=== PATIENT | female | born 1955 | race Caucasian/White ===

== ENCOUNTER → 2017-12-08 | Outpatient (CLI) | payer OTHER ==
[~2017-12-08] MED LIST: AMT25 PO; B-COCAP2 PO; BUPRTAB51 PO; COLE625T PO; CRS10 PO; FLX10 PO; HYDC25 PO; LOVAZA PO; METO50TA7 PO; OSTEOBIFLEX PO; OXYC-57 PO; PRLSR20 PO; SENN-61 PO; TRAM-10 PO; [UNRECOGNIZED DRUG - OTHER] PO
--- NOTE | 2017-12-09 06:36 | PAP/PSG TECHNICIAN REPORT ---
[facility] Manager Basketball Polysomnogram Report Study name: None Report date: 12/09/2017 Study date: 12/08/2017 Referring Physician: Dr. Ravindra Melendez DO Name: NAKITA CARLEEN M Interpreting Physician: Ravindra Melendez D.O. Date of : 1955 Manager Basketball: Ramon Pritchett RPSGT. Sex: Female Age: 62 StudyType: PSG PAP Weight: 160 lbs Height: 62 years, Height 5' 0" BMI: 31.24 Medications: AMITRIPTYLINE HCL 25 MG, BYSTOLIC 10 MG, GABAPENTIN 100 MG, HYDROCHLOROTHIZIDE 25 MG, LOSARTAN POTASSIUM 25 MG, MELOXICAM, POTASSIUM CHLORIDE 20 MEQ, PRILOSEC OTC 20 MG, VALTREX 500 MG Patient History PATIENT HAD A SLEEP STUDY DONE IN SEPTEMBER OF 2017. SHE WAS POSITIVE FOR ESTELLA WITH AN AHI OF 27.7/HR. SHE IS HERE TODAY FOR A CPAP TITRATION. RM 6 Parameters Monitored NPSG: E1-M2, E2-M1, Fp1-M2, Fp2-M1, F3-M2, F4-M2, F4-M1, C3-M2, C4-M2, C4-M1, O1-M2, O2-M2, O2-M1, T3-M2, T4-M1, P3-M2, P4-M1, CHIN1, CHIN2, HR, EKG, Legs, PFLOW, SNOR, FLOW, CFLOW, Tidal Volume, THOR, ABDO, SpO2, PLTH, CPRESS, ETCO2 Wave, ETCO2, pH Sleep Architecture Sleep Stages Time at Lights Off 10:21:47 PM STAGES Time (min.) TST (%) Time at Lights On 5:27:17 AM Wake 52.0 -- Total Recording Time (TRT) 426.00 min. N1 9.0 2 Total Sleep Period (TSP) 400.0 min. N2 295.0 79 Total Sleep Time (TST) 373.5min. N3 21.0 6 Awake Time 52.0 min. REM 48.5 13 Wake after Sleep Onset 26.5 min. Sleep Efficiency (SE) 88 % Sleep Onset Latency (BRITTNEY) 25.5 min. Number of Stage 1 Shifts None Awakenings 6 Stage Changes 31 Number of REM periods 3 REM 48.5 13 REM Latency 148.5 min. NREM 325.0 87 Body Position Analysis Supine Right Left Side Prone Vertical Total Sleep Time (min.) 425.5 0.0 0.0 0.00 0.0 0.0 Total Sleep Time (%) 100% 0% 0% 0 0% N/A% Total Sleep Time REM (min.) 48.5 0.0 0.0 None 0.0 0.0 Total Sleep Time NREM (min.) 325.0 0.0 0.0 None 0.0 0.0 Intermittent Wake (min.) 52.0 0.0 0.0 None 0.0 0.0 Total Sleep Period (%) 100% None None None None None Arousals Myoclonus (PLM) * Events Count Index Events Count Index Spontaneous 8 1 Events Awake (PLMW) 56 64.6 Respiratory 1 0.3 Events Asleep w/ Arousal (PLMA) 3 0.5 PLM 3 0 Events Asleep w/o Arousal (PLMS) 54 8.7 Snoring 3 0 Total Asleep 57 9.2 Total 15 2 Total 113 16 Respiratory Analysis * CA OA MA CH H RERA Total Count 0 1 0 0 26 0 27 Index 0.0 0.2 0.0 0 4.2 0 4.3 Mean Duration 0.0 15.0 0.0 0.00 22.4 0.0 22.1 Longest Duration 0.0 15.0 0.0 0.00 0.0 0.0 40.9 Respiratory Event Summary Total Supine ~Supine Right Left Prone REM NREM Apneas Count 1 1 N/A N/A N/A N/A 0 1 Index 0.2 0 N/A N/A N/A N/A 0 0 Hypopneas (4% Desat) Count 26 26 N/A N/A N/A N/A 3 23 Index 4.2 4.2 N/A N/A N/A N/A 3.7 4.2 Apneas & All Hypopneas Count 27 27 N/A N/A N/A N/A 3 24 Index 4.3 4 N/A N/A N/A N/A 3.7 4.4 Respiratory Events (Rug Cleaner Hand+All Hyp+RERA) Count 27 27 N/A N/A N/A N/A 3 24 Index 4.3 4 N/A N/A N/A N/A 3.7 4.4 Respiratory Related Arousal Count 1 27 N/A N/A N/A N/A 0 2 Index 0.3 0 N/A N/A N/A N/A 0 0 Snoring Analysis Supine Right Left Prone REM NREM Total Snore duration 4.7 min Snores count 194 N/A N/A N/A 1 193 194 Snore mean duration 1.5 Sec Snores index 31 N/A N/A N/A 1.2 35.6 31.2 TST with snoring (%) 1.3% Desaturation Event Summary: Minimum %SpO2 Event Count Mean/Min/Max Duration(sec.) Desaturation Index % Time In Bed > 90 23 47.6 / 9.0 / 84.6 5.8 56.4 86 - 90 10 40.6 / 17.0 / 68.2 3.3 43.2 81 - 85 0 N/A 0.0 0.3 76 - 80 0 N/A 0.0 0.0 71 - 75 0 N/A 0.0 0.0 66 - 70 0 N/A 0.0 0.0 61 - 65 0 N/A 0.0 0.0 56 - 60 0 N/A 0.0 0.0 51 - 55 0 N/A 0.0 0.0 < 50 0 N/A 0.0 0.0 Total REM NREM Awake <50% 0.0 min. 0.0 min. 0.0 min. 0.0 min. 51 - 60% 0.0 min. 0.0 min. 0.0 min. 0.0 min. 61 - 70% 0.0 min. 0.0 min. 0.0 min. 0.0 min. 71 - 80% 0.0 min. 0.0 min. 0.0 min. 0.0 min. 81 - 90% 182.1 min. 19.6 min. 151.6 min. 11.0 min. 91 - 100% 235.9 min. 28.9 min. 173.4 min. 33.6 min. Average 91 91 91 91 Minimum SpO2 82 87 82 87 Desaturation Event Index 4.2 3.7 5.0 1.2 # Desat. Events below 89% 27 3 24 0 Time(%) with Saturation below 89% 2.6 0.3 2.3 0.1 Time(min.) with Saturation below 89% 11.0 1.1 9.6 0.3 Time (mins) REM (mins) NREM (mins) % of TST SpO2 Below 90% 29 3 N26 12.5 SpO2 Below 88% 19 0 0 2 Heart Rate Analysis Min (bpm) Max (bpm) Average (bpm) Awake 57 79 66 NREM 54 80 65 REM 57 79 66 Overall 54 80 65 Supplemental O2 Values Minimum O2 level: None Value Start Time End Time Manager Basketball Comments Mrs. Smith slept in the supine positions. No cardiac arrhythmia noted. Leg movements noted. No bruxism noted. CPAP was initiated at +4 CMH2O and up-titrated to an optimal level of +9 CMH2O, which nearly eliminated all respiratory events and snoring. A Resmed AirFit F20 full face size small mask was used during titration Mrs. Smith awoke to use the restroom 1 time during the night. Mrs. Smith stated I slept as well as I do when I am in my own bed. The final report will be interpreted and signed by a sleep physician. The completed physician report will then be placed in the patient medical record. Therapy Event: Therapy (cm H20) 4 5 6 8 9 Total Time at Pressure (min.) 80.1 98.9 72.9 16.4 157.1 TST at Pressure (min.) 54.1 98.9 48.4 16.4 155.6 # Periods 1 1 1 1 1 Sleep Onset (min.) 25.5 0.0 0.0 0.0 0.0 REM Onset (min.) N/A 93.9 0.0 N/A 61.1 Sleep Efficiency % 67 100 66 100 99 Wakefulness (%) 32.4 0.0 33.6 0.0 1.0 Wakefulness (min.) 26.0 0.0 24.5 0.0 1.5 NREM 1 (%) 2.5 0.0 6.2 0.0 1.6 NREM 1 (min.) 2.0 0.0 4.5 0.0 2.5 NREM 2 (%) 38.9 94.9 35.6 100.0 81.2 NREM 2 (min.) 31.1 93.9 26.0 16.4 127.6 NREM 3 (%) 26.2 0.0 0.0 0.0 0.0 NREM 3 (min.) 21.0 0.0 0.0 0.0 0.0 REM (%) 0.0 5.1 24.6 0.0 16.2 REM (min.) 0.0 5.0 18.0 0.0 25.5 # Arousals 5 3 3 0 4 Arousal Index 5.5 1.8 3.7 0.0 1.5 # Snore 58 7 60 51 18 Snore Index 64.3 4.2 74.3 186.2 6.9 AHI 11.1 1.8 9.9 14.6 0.8 AHI Supine 11.1 1.8 9.9 14.6 0.8 AHI Non-Supine N/A N/A N/A N/A N/A NREM AHI 11.1 0.6 13.8 14.6 0.9 REM AHI N/A 23.9 3.3 N/A 0.0 RDI 11.1 1.8 9.9 14.6 0.8 # Obstructive 0 0 1 0 0 # Central Ap 0 0 0 0 0 # Mixed 0 0 0 0 0 # Hypopneas 10 3 7 4 2 RERAS 0 0 0 0 0 Total Respiratory Events 10 3 8 4 2 Time Below SpO2 89.00% (min.) 2.8 2.9 1.6 1.3 2.0 Mean NREM SpO2 (%) 91 91 91 91 90 Mean REM SpO2 (%) N/A 91 91 N/A 90 Mean Sleep SpO2 (%) 91 91 91 91 90 Min NREM SpO2 (%) 84 82 87 84 85 Min REM SpO2 (%) N/A 87 87 N/A 88 Position Supine (min.) 54.1 98.9 48.4 16.4 155.6 Position Non-supine (min.) 0.0 0.0 0.0 0.0 0.0 LM Index Sleep 17.7 3.6 13.6 0.0 9.3 LM Index NREM 17.7 3.2 5.9 0.0 10.1 LM Index REM N/A 11.9 26.7 N/A 4.7 Mean Heart Rate (bpm) 67 67 67 63 62 Min Heart Rate (bpm) 59 58 60 58 54
--- NOTE | 2017-12-13 10:43 | Sleep Study ---
Sleep Study Report Date of Service: 12/08/2017 Sleep Study Report CLINICAL DATA: The patient is a 62-year-old female who was diagnosed with moderate sleep apnea years ago. She did not tolerate nasal CPAP. She does have excessive daytime somnolence and morning headaches. There is a history of hypertension. A diagnostic sleep study was done 10/16/2017. This revealed moderate sleep apnea with an apnea-hypopnea index of 27.7. [facility]. SLEEP ARCHITECTURE: The total sleep period was 400 minutes. The total sleep time was 373.5 minutes. The sleep efficiency was near normal at 88 percent. The sleep latency was mildly prolonged at 25.5 minutes. Wake after sleep onset was 26.5 minutes. The REM latency was prolonged to 148.5 minutes. Sleep consisted of stage N1 2 percent, stage N2 79 percent, stage N3 6 percent, stage REM 13 percent. AROUSAL DATA: Patient had a total of 15 arousals including 8 spontaneous arousals, 1 respiratory arousal, 3 PLM arousals, and 3 snoring arousals. The arousal index was normal at 2. PLM DATA: The patient had a total of 57 periodic limb movements of sleep for a PLM index of 9.2. There were 3 arousals associated with limb movements for a PLM arousal index of 0.5. EKG: The underlying cardiac rhythm was normal sinus. The cardiac rates 54-80 beats per minute. The average heart rate was 65 beats per minute. RESPIRATORY DATA: The patient was treated with nasal CPAP. She had a total of 27 respiratory events including 1 obstructive apnea and 26 hypopneas. Hypopneas were scored according to the 4 percent desaturation rule. The apnea was 15 seconds. The mean duration of the hypopneas was 22.4 seconds. The apnea-hypopnea index was 4.3 events per hour. At the final pressure of 9 centimeters the apnea-hypopnea index was only 0.8. She did spend 157 minutes at the final pressure. OXIMETRY DATA: The average saturation for the night was 91 percent. The minimum saturation was 82 percent. There was a total of 11 minutes with saturations less than 89 percent. RESIDENTIAL COLLECTIONS COMMENTS: The patient slept in the supine position. No cardiac arrhythmia noted. Leg movements noted. No bruxism noted. CPAP was initiated at 4 centimeters and up titrated to an optimal level of 9 centimeters which nearly eliminated all respiratory events and snoring. A ResMed med air fit F 20 full face mask size small was used during titration. The patient awakened to use the restroom 1 time during the night. IMPRESSIONS: 1. Obstructive sleep apnea-resolved with nasal CPAP at 9 centimeters COMMENTS: The patient did very well with nasal CPAP. Her sleep efficiency was near normal. She had very few arousals. Her sleep was well consolidated. She had no significant apnea at the final pressure of 9 centimeters. RECOMMENDATIONS: 1. It is advised that the patient be started on nasal CPAP at 9 centimeters. 2. It is suggested that she be ordered a ResMed med air fit F 20 full face mask size small. 3. Weight loss is advised in light of the elevation of body mass index at 31.24. 4. If possible the patient should avoid sleeping in the supine position. Typically there is more respiratory events and snoring while supine. Copies To 1: Ravindra Melendez DO; Vivien Berrios M.D.
== END | disposition home or self-care (01) ==
LOC: C.NEUR 20:00
PROVIDERS: ATTEND Internal Medicine Pulmonary Disease
DX: G47.33 Obstructive sleep apnea (adult) (pediatric) (principal)

== ENCOUNTER → 2018-01-20 | Outpatient (CLI) | payer OTHER ==
[~2018-01-20] MED LIST changes: -METO50TA7 PO; +METO50TA8 PO
--- NOTE | 2018-01-20 15:50 | DIAGNOSTIC IMAGING REPORT ---
MRI OF THE RIGHT SHOULDER CLINICAL HISTORY: Right shoulder pain. Limited range of motion. COMPARISON STUDY: Radiographs of the right shoulder dated 12/16/2017. TECHNIQUE: MRI of the right shoulder was performed utilizing various T1 and T2 weighted sequences in the axial, sagittal, coronal planes. IV contrast was not administered for this examination. The examination is compromised by motion artifact. FINDINGS: Rotator cuff: There is tendinopathy with extensive high-grade partial-thickness tearing of the supraspinatus tendon. A small full-thickness tear is seen on sagittal image #9. There is no musculotendinous retraction. There is tendinopathy with mild partial thickness tearing of the infraspinatus tendon near the leading edge. No full-thickness tear is seen. The teres minor and subscapularis tendons are intact. There is no subacromial or subdeltoid bursal fluid. Mild productive changes seen at the acromioclavicular joint. Biceps tendon: The proximal biceps tendon is not visualized at the anchor and may be completely torn with previous surgical repair. More distally, the biceps tendon appears stenotic but intact and is located in the bicipital groove. Labrum: There is degenerative tearing/maceration of the glenoid labrum. Shoulder joint: There is a small joint effusion. There is complete loss of the articular cartilage of the glenoid. Normal advanced arthritic change is seen in the humeral head. There is flattening of the humeral head with extensive marrow edema and large foci of subchondral cyst formation. Advanced arthritic changes also seen in the glenoid with foci of subchondral cyst formation and marrow edema. No fracture is seen. Large spurs arise along the inferomedial aspect of the humeral head. Screw tracts are noted in the humeral head and glenoid. Musculature and soft tissues: The musculature of the shoulder is normal in bulk and signal intensity. No atrophy is seen. IMPRESSION: 1. Advanced arthritic change is seen at the shoulder joint as above, with marked deformity and marrow edema in the humeral head as well as marrow edema involving the glenoid. 2. The proximal long head of the biceps tendon is not visualized at the anchor. The more distal portions of the biceps tendon are demonstrate tendinopathy but are intact. Correlate for a history of previous tear/ surgical repair. 3. There is tendinopathy with extensive partial thickness tearing of the supraspinatous tendon. A small full-thickness tear is seen. No musculotendinous retraction is identified. 4. There is mild tendinopathy of the infraspinatus tendon with partial thickness tearing seen at the leading edge. 5. There is extensive tearing/maceration of the glenoid labrum. Electronically signed by: Nikhil Huynh M.D. 01/20/2018 3:49 PM Dictated Date/Time: 01/20/2018 3:42 PM
== END | disposition home or self-care (01) ==
LOC: C.MRIBC 15:00
PROVIDERS: ATTEND Orthopaedic Surgery
DX: M19.011 Primary osteoarthritis, right shoulder (principal); R60.0 Localized edema; M67.813 Other specified disorders of tendon, right shoulder; M75.101 Unspecified rotator cuff tear or rupture of right shoulder, not specified as traumatic; S46.011A Strain of muscle(s) and tendon(s) of the rotator cuff of right shoulder, initial encounter; S43.431A Superior glenoid labrum lesion of right shoulder, initial encounter; X58.XXXA Exposure to other specified factors, initial encounter

== ENCOUNTER 2021-04-27 07:34 | Inpatient (IN) ==
--- NOTE | 2021-03-23 15:49 | PAT Medication Instructions ---
Medication Instructions Date of Service March 23, 2021 Home Medications losartan 25 mg tablet 25 mg PO QAM metformin 500 mg tablet 1,000 mg PO QAM multivitamin 1 tab PO QAM valacyclovir 500 mg tablet 500 mg PO DAILY cetirizine 10 mg capsule 10 mg PO DAILY PRN magnesium oxide 500 mg capsule 500 mg PO QAM metoprolol succinate 25 mg capsule sprinkle, ext. release 24 hr 25 mg PO QAM naproxen sodium 220 mg capsule 220 mg PO Q12H turmeric root extract 500 mg capsule 500 mg PO QAM acetaminophen [Acetaminophen Extra Strength] 500 mg PO BID amitriptyline 50 mg PO HS calcium 600 mg PO BID cholecalciferol (vitamin D3) [Vitamin D3] 250 mcg PO QAM folic acid 0.8 mg PO QAM glucosamine-chondroitin [Osteo Bi-Flex] 2 tab PO QAM omeprazole magnesium [Prilosec OTC] 20 mg PO QAM potassium chloride 20 meq PO TID vitamin B complex 1 tab PO QAM ASK your surgeon for instructions naproxen sodium 220 mg capsule 220 mg PO Q12H STOP taking 2 weeks before surgery turmeric root extract 500 mg capsule 500 mg PO QAM glucosamine-chondroitin [Osteo Bi-Flex] 2 tab PO QAM DO NOT take the morning of surgery losartan 25 mg tablet 25 mg PO QAM metformin 500 mg tablet 1,000 mg PO QAM multivitamin 1 tab PO QAM cetirizine 10 mg capsule 10 mg PO DAILY PRN magnesium oxide 500 mg capsule 500 mg PO QAM calcium 600 mg PO BID cholecalciferol (vitamin D3) [Vitamin D3] 250 mcg PO QAM folic acid 0.8 mg PO QAM potassium chloride 20 meq PO TID vitamin B complex 1 tab PO QAM Take morning of surgery With a small sip of water, OTHERWISE NOTHING TO EAT OR DRINK AFTER MIDNIGHT: valacyclovir 500 mg tablet 500 mg PO DAILY metoprolol succinate 25 mg capsule sprinkle, ext. release 24 hr 25 mg PO QAM acetaminophen [Acetaminophen Extra Strength] 500 mg PO BID (okay to take up to 4 hours prior to surgery if needed) omeprazole magnesium [Prilosec OTC] 20 mg PO QAM Take evening before surgery acetaminophen [Acetaminophen Extra Strength] 500 mg PO BID amitriptyline 50 mg PO HS calcium 600 mg PO BID potassium chloride 20 meq PO TID Other Notes If you have any questions please call us at [phone] or [phone] or or [phone]
--- NOTE | 2021-03-28 11:59 | Anesthesiology Consultation ---
Date of Service March 28, 2021 Assessment & Plan (1) Encounter for pre-operative examination: Chart Review Chart Review: Acceptable Risk for Surgery (pending preop Covid testing results ) and Patient seen in Pre Admission Testing - Check BSG AM DOS Left UE restriction Per nursing assessment 03/19/21, patient denies any recent travel. No known Covid positive contacts or Covid related symptoms. No known Covid infection in the past 90 days. Preop Covid testing 04/25/21= will await results. Educated on importance of self quarantining, social distancing and wearing mask in public both for the patient and household contacts. Last seen by cardiology 01/31/2021 = seen for follow-up on nonischemic cardiomyopathy secondary to chemotherapy. Cardio aware of upcoming shoulder surgery. "From a cardiac standpoint she is doing very well and no further cardiac testing or intervention is necessary at this time. She is on a very good medical regimen and no changes will be made today. I have encouraged to remain active and I will plan on seeing her back here in 6 months. In terms of her preop risk assessment she was counseled that I would place her as a moderate risk for any adverse perioperative cardiovascular event with her risk being approximately less than 5%. She was further counseled that no further cardiac testing intervention would further lower her risk. She states that she understands, she is accepting of that risk and wishes to proceed with surgeries. I have counseled her to continue her metoprolol uninterrupted throughout any periprocedural time. To help further lower her cardiac risk." Teaching & Discussion Pre-Anesthesia Teaching/Discussion Notes: Instructed NPO after midnight before surgery,except medications with 15 cc of water. Medication instructions provided according to the PAT guidelines. History Surgery Operation Date: 04/27/21 08:45 Proposed Procedures p Left Total Shoulder Arthroplasty Reverse - Nate Chapman, Height/Weight Height: 4 ft 10 in Weight: 64.5 kg Allergies Allergy/AdvReac Type Severity Reaction Status Date / Time niacin Allergy Severe ITCHING Verified 03/19/21 11:43 AND FLUSH FEELING atorvastatin [From Lipitor] Allergy Intermediate muscle Verified 03/19/21 11:43 pains ezetimibe [From Vytorin] Allergy Intermediate muscle Verified 03/19/21 11:43 pains lisinopril Allergy Intermediate Cough Verified 03/19/21 11:43 rosuvastatin [From Crestor] Allergy Intermediate Muscle Pain Verified 03/19/21 11:43 simvastatin [From Vytorin] Allergy Intermediate Muscle Pain Verified 03/19/21 11:43 codeine AdvReac Intermediate Nausea Verified 03/19/21 11:43 prochlorperazine AdvReac Unknown EXTRAPYRAMIDAL Verified 03/19/21 11:43 SIDE EFFECTS/MOUTH TWITCHING Medications Home Medications Medication Instructions Recorded Confirmed Last Taken losartan 25 mg tablet 25 mg PO QAM 03/23/19 03/19/21 Unknown metformin 500 mg tablet 1,000 mg PO QAM 03/23/19 03/19/21 Unknown multivitamin 1 tab PO QAM 03/23/19 03/19/21 Unknown valacyclovir 500 mg tablet 500 mg PO DAILY tab 12/29/19 03/19/21 Unknown cetirizine 10 mg capsule 10 mg PO DAILY PRN 12/13/20 03/19/21 Unknown magnesium oxide 500 mg capsule 500 mg PO QAM 12/13/20 03/19/21 Unknown metoprolol succinate 25 mg capsule 25 mg PO QA ea 12/13/20 03/19/21 Unknown sprinkle, ext. release 24 hr naproxen sodium 220 mg capsule 220 mg PO Q12H 12/13/20 03/19/21 Unknown turmeric root extract 500 mg 500 mg PO QA cap 12/13/20 03/19/21 Unknown capsule acetaminophen [Acetaminophen Extra 500 mg PO BID 03/19/21 03/19/21 Unknown Strength] amitriptyline 50 mg PO HS 03/19/21 03/19/21 Unknown calcium 600 mg PO BID 03/19/21 03/19/21 Unknown cholecalciferol (vitamin D3) 250 mcg PO QAM 03/19/21 03/19/21 Unknown [Vitamin D3] folic acid 0.8 mg PO QAM 03/19/21 03/19/21 Unknown glucosamine-chondroitin [Osteo 2 tab PO QA 03/19/21 03/19/21 Unknown Bi-Flex] omeprazole magnesium [Prilosec OTC] 20 mg PO QAM 03/19/21 03/19/21 Unknown potassium chloride 20 meq PO TID 03/19/21 03/19/21 Unknown vitamin B complex 1 tab PO QAM 03/19/21 03/19/21 Unknown Past Medical History Medical History (Updated 03/29/21 @ 14:42 by Mely Dawn PA-C) Degenerative disc disease Diabetes mellitus, type 2 Well controlled and stable A1C 6.1 on 03/28/21 Fibromyalgia Currently has flare GERD (gastroesophageal reflux disease) Well controlled and stable History of anemia Stable blood count since menopause History of kidney stones Not current issues History of TMJ disorder Improved with dental implants Hx of basal cell carcinoma Squamous and basal cell carcinoma - s/p removal Prone to keloids Hx of breast cancer LEFT- 2019 S/p left breast lumpectomy with LN dissection and chemo/XRT Hypercholesterolemia Hypertension Irregular heart beat Left bundle branch block CHRONIC- FOLLOWS WITH DR. RUBIN Lymphedema of left arm HX OF- IMPROVED WITH PT Nonischemic cardiomyopathy Mild- EF as low as 45-50% s/p chemo- since resolved ESTELLA (obstructive sleep apnea) NO DEVICE USING CURRENLTY (NEEDS SUPPLIES) HAS LOST WEIGHT - FEELS SYMPTOMS IMPROVED- HAS NOT HAD REPEAT SLEEP STUDY Exercise / Class Metabolic Activity III < 4 Walking/Shop/Light housework (ONE FLIGHT OF STAIRS- MILD SOB- NO CHEST PAIN ) Past Family History Family History Mother , age 59 Emphysema lung Father , age 56 Myocardial infarction Family history of diabetes mellitus Sister Vaginal bleeding Brother No problems noted. Son No problems noted. Son No problems noted. Grandmother (Maternal) Colon cancer Family history of diabetes mellitus Grandfather (Paternal) Colon cancer Prostate cancer Other No family history of adverse response to anesthesia Past Surgical History Surgical History H/O abdominoplasty H/O ankle fusion LEFT H/O cervical spine surgery X 3 (HARDWARE) "LIMITED ROM" BOTH WITH SIDE TO SIDE AND FLEXION AND EXTENSTION FUSED C3-T3 H/O section X 2 H/O tubal ligation History of ankle surgery LEFT>surgery -2018 , bone marrow transplant (FAILED) History of cataract surgery RT/LEFT History of colonoscopy History of esophagogastroduodenoscopy (EGD) History of laparoscopy History of lumbar fusion History of repair of rotator cuff RT X 2 History of tooth extraction WITH DENTAL IMPLANTS Hx of squamous cell carcinoma excision S/P bilateral breast reduction surgery 2002 S/P lumpectomy, left breast WITH CHEMO AND RADIATION Past Anesthesia History No Hx of Anesthesia Complications and No Family Hx of Anesthesia Complications History of PONV History of PONV (RELIEVED WITH IV ANTI NAUSEA MEDS ) and Hx of Motion Sickness Social History Smoking Status: Former smoker tobacco type: cigarettes Smoking cigarettes per day: Quit 1980 Do You Dip or Chew Tobacco: No Smoking End Date: 1980 Hx Alcohol Use: Yes alcohol intake frequency: holidays/special occasions only Hx Substance Use: No substance use type: does not use Review of Systems Hx of blood transfusion- s/p surgery ( and back surgery) Chronic cough- feels secondary to allergies- stable Patient denies chest pain, shortness of breath at rest, wheezing, palpitations. No hx of seizures, stroke, MS. No hx of blood clots or blood transfusions Physical Exam Vital Signs VITALS BP 172/98 (per patient- BP elevated recently- pt will monitor at home- if still elevated- she will follow up with cardio) P 82 TEMP 98.3 SP02 97% RESP 16 Constitutional no acute distress ENMT Mouth: no TMJ clicking Thyromental Distance: > or= 3.5 Finger Breadths (3.5) Mallampati Class: I Front teeth on top and bottom are either capped or permanent implants Neck + limited neck extension (significant ) Respiratory normal respiratory effort; no respiratory distress Auscultation: lungs clear to auscultation bilaterally; no wheezes Cardiovascular Rate/Rhythm: regular rate and regular rhythm Heart Sounds: no murmur Vessels: no carotid bruit Musculoskeletal Spine: no pain with cervical ROM Extremities: extremities normal to inspection Psychiatric Orientation: alert Testing Laboratory Results 03/28/21 13:00 03/28/21 13:00 PT 10.3 Seconds (9.0-12.0) 03/28/21 13:00 INR 1.0 (0.9-1.1) 03/28/21 13:00 APTT 27.0 Seconds (21.0-31.0) 03/28/21 13:00 Hemoglobin A1c 6.1 % (4.5-5.6) H 03/28/21 13:00 Blood Type O Positive 03/28/21 13:00 Antibody Screen NEGATIVE 03/28/21 13:00 Electrocardiogram Date: 03/28/21 Findings: + NSR @ (75 bpm) Left bundle branch block When compared to EKG from March 26, 2011no significant changes found per cardio. Chest X-Ray Date: 03/28/21 Findings: + NAD The heart is the upper limits of normal in size. There is aortic tortuosity/ectasia. There is no failure. There is no focal pulmonary consolidation. There are no pleural effusions. There are postsurgical changes within the cervical spine. There is evidence of a posterior cervicothoracic spinal fusion Echocardiogram Date: 06/03/19 EF: 52% LV Function: normal Other Findings: + LVH (Mild/concentric) and + diastolic dysfunction (Grade 1) Septal wall motion is abnormal consistent with left bundle branch block. Regional left ventricular wall motion is otherwise normal. Mild to moderate aortic valve sclerosis without stenosis. Mild TR. Stress Test Date: 05/15/20 Type: nuclear Myocardial perfusion imaging is normal. Overall left ventricular systolic function was normal without regional wall motion abnormalities. LVEF 63%. Baseline EKG shows sinus rhythm with left bundle branch block. Stress EKG was nondiagnostic due to LBBB.
--- NOTE | 2021-03-28 13:39 | XRay Report ---
XR chest Pre-admission PA/Lat CLINICAL HISTORY: Preoperative chest COMPARISON STUDY: 03/26/2011 FINDINGS: The heart is the upper limits of normal in size. There is aortic tortuosity/ectasia. There is no failure. There is no focal pulmonary consolidation. There are no pleural effusions. There are p ostsurgical changes within the cervical spine. There is evidence of a posterior cervicothoracic spina l fusion.[ IMPRESSION: No active disease in the chest. ACT 112: Negative or not required by law. Electronically signed by: Eder Lew M.D. 03/28/2021 1:38 PM
[2021-03-28 13:51] LABS: Basophils # (auto) 0.04 K/uL (0-0.2); Basophils % (auto) 0.6 %; Eosinophils # (auto) 0.19 K/uL (0-0.5); Eosinophils % (auto) 2.7 %; Hematocrit (blood only) 36.4 % (37-47); Hemoglobin 11.9 g/dL (12.0-16.0); Immature Granulocytes # (auto) 0.01 K/uL (0.00-0.02); Immature Granulocytes % (auto) 0.1 %; Lymphocytes # (auto) 1.68 K/uL (1.2-3.4); Lymphocytes % (auto) 23.8 %; Mean Corpuscular Hemoglobin 28.6 pg (25-34); Mean Corpuscular Hgb Conc 32.7 g/dL (32-36); Mean Corpuscular Volume 87.5 fL (80-100); Mean Platelet Volume 9.6 fL (7.4-10.4); Monocytes # (auto) 0.69 K/uL (0.11-0.59); Monocytes % (auto) 9.8 %; Neutrophils # (auto) 4.46 K/uL (1.4-6.5); Platelet Count 305 K/uL (130-400); RDW Coefficient of Variation 14.8 % (11.5-14.5); RDW Standard Deviation 47.3 fL (36.4-46.3); Red Blood Count 4.16 M/uL (4.2-5.4); White Blood Count 7.07 K/uL (4.8-10.8)
[2021-03-28 14:03] LABS: Estimated Average Glucose 128 mg/dl; Hemoglobin A1C 6.1 % (4.5-5.6); Prothrombin Time 10.3 Seconds (9.0-12.0)
[2021-03-28 14:48] LABS: BUN Creatinine Ratio 19.3 (10-20); Calcium 9.1 mg/dl (8.5-10.1); Creatinine Clr Calc Pharmacy 54.3 ml/min; Est GFR (African American) 87.7 ml/min; Est GFR (Non-African American) 75.7 ml/min; Potassium 3.8 mmol/L (3.5-5.1)
--- NOTE | 2021-03-29 22:16 | Electrocardiogram Report ---
Test Reason : Blood Pressure : / mmHG Vent. Rate : 075 BPM Atrial Rate : 075 BPM P-R Int : 142 ms QRS Dur : 134 ms QT Int : 402 ms P-R-T Axes : 032 -16 100 degrees QTc Int : 448 ms Normal sinus rhythm Left bundle branch block Abnormal ECG When compared with ECG of 26-MAR-2011 10:06, No significant change was found Confirmed by Michael Stokes ([id number]) on 03/29/2021 10:16:31 PM Referred By: Nate Chapman Confirmed By:Michael Stokes
--- NOTE | 2021-04-26 15:53 | History & Physical Report ---
Date of Service April 26, 2021 Assessment & Plan (1) Osteoarthritis of right shoulder: We will proceed with a right reverse shoulder arthroplasty. Postoperatively she will be placed in a sling and kept overnight in the hospital for postoperative medical management. She plans to do physical therapy with Elizabeth Davey in the [facility] upon discharge. History of Present Illness Chief Complaint: Advanced osteoarthritis of the right shoulder. Primary Care Provider: Vivien Berrios MD Liza is a pleasant six 5-year-old female has been dealing with chronic increasing left shoulder pain. I did a right shoulder arthroscopy on her 4 years ago with rotator cuff repair. She a lot of arthritis at that time. Unfortunate she has gone on to develop worsening arthritis of the shoulder. After failing extensive conservative treatment, she has elected proceed with a right reverse shoulder arthroplasty.. Allergies Allergy/AdvReac Type Severity Reaction Status Date / Time niacin Allergy Severe ITCHING Verified 03/19/21 11:43 AND FLUSH FEELING atorvastatin [From Lipitor] Allergy Intermediate muscle Verified 03/19/21 11:43 pains ezetimibe [From Vytorin] Allergy Intermediate muscle Verified 03/19/21 11:43 pains lisinopril Allergy Intermediate Cough Verified 03/19/21 11:43 rosuvastatin [From Crestor] Allergy Intermediate Muscle Pain Verified 03/19/21 11:43 simvastatin [From Vytorin] Allergy Intermediate Muscle Pain Verified 03/19/21 11:43 codeine AdvReac Intermediate Nausea Verified 03/19/21 11:43 prochlorperazine AdvReac Unknown EXTRAPYRAMIDAL Verified 03/19/21 11:43 SIDE EFFECTS/MOUTH TWITCHING Home Medications Medication Instructions Recorded Confirmed Type losartan 25 mg tablet 25 mg PO QAM 03/23/19 03/19/21 History metformin 500 mg tablet 1,000 mg PO QAM 03/23/19 03/19/21 History multivitamin 1 tab PO QAM 03/23/19 03/19/21 History valacyclovir 500 mg tablet 500 mg PO DAILY tab 12/29/19 03/19/21 History cetirizine 10 mg capsule 10 mg PO DAILY PRN 12/13/20 03/19/21 History magnesium oxide 500 mg capsule 500 mg PO QAM 12/13/20 03/19/21 History metoprolol succinate 25 mg capsule 25 mg PO QAM ea 12/13/20 03/19/21 History sprinkle, ext. release 24 hr naproxen sodium 220 mg capsule 220 mg PO Q12H 12/13/20 03/19/21 History turmeric root extract 500 mg 500 mg PO QAM cap 12/13/20 03/19/21 History capsule acetaminophen [Acetaminophen Extra 500 mg PO BID 03/19/21 03/19/21 History Strength] amitriptyline 50 mg PO HS 03/19/21 03/19/21 History calcium 600 mg PO BID 03/19/21 03/19/21 History cholecalciferol (vitamin D3) 250 mcg PO QAM 03/19/21 03/19/21 History [Vitamin D3] folic acid 0.8 mg PO QAM 03/19/21 03/19/21 History glucosamine-chondroitin [Osteo 2 tab PO QAM 03/19/21 03/19/21 History Bi-Flex] omeprazole magnesium [Prilosec OTC] 20 mg PO QAM 03/19/21 03/19/21 History potassium chloride 20 meq PO TID 03/19/21 03/19/21 History vitamin B complex 1 tab PO QAM 03/19/21 03/19/21 History Past Med/Surg History Medical History Degenerative disc disease Diabetes mellitus, type 2 Well controlled and stable A1C 6.1 on 03/28/21 Fibromyalgia Currently has flare GERD (gastroesophageal reflux disease) Well controlled and stable History of anemia Stable blood count since menopause History of kidney stones Not current issues History of TMJ disorder Improved with dental implants Hx of basal cell carcinoma Squamous and basal cell carcinoma - s/p removal Prone to keloids Hx of breast cancer LEFT- 2019 S/p left breast lumpectomy with LN dissection and chemo/XRT Hypercholesterolemia Hypertension Irregular heart beat Left bundle branch block CHRONIC- FOLLOWS WITH DR. RUBIN Lymphedema of left arm HX OF- IMPROVED WITH PT Nonischemic cardiomyopathy Mild- EF as low as 45-50% s/p chemo- since resolved ESTELLA (obstructive sleep apnea) NO DEVICE USING CURRENLTY (NEEDS SUPPLIES) HAS LOST WEIGHT - FEELS SYMPTOMS IMPROVED- HAS NOT HAD REPEAT SLEEP STUDY Surgical History H/O abdominoplasty H/O ankle fusion LEFT H/O cervical spine surgery X 3 (HARDWARE) "LIMITED ROM" BOTH WITH SIDE TO SIDE AND FLEXION AND EXTENSTION FUSED C3-T3 H/O section X 2 H/O tubal ligation History of ankle surgery LEFT>surgery -2018 , bone marrow transplant (FAILED) History of cataract surgery RT/LEFT History of colonoscopy History of esophagogastroduodenoscopy (EGD) History of laparoscopy History of lumbar fusion History of repair of rotator cuff RT X 2 History of tooth extraction WITH DENTAL IMPLANTS Hx of squamous cell carcinoma excision S/P bilateral breast reduction surgery 2002 S/P lumpectomy, left breast WITH CHEMO AND RADIATION Family History Mother , age 59 Emphysema lung Father , age 56 Myocardial infarction Family history of diabetes mellitus Sister Vaginal bleeding Brother No problems noted. Son No problems noted. Son No problems noted. Grandmother (Maternal) Colon cancer Family history of diabetes mellitus Grandfather (Paternal) Colon cancer Prostate cancer Other No family history of adverse response to anesthesia Social History Smoking Status: Former smoker packs per day: 2; Years Smoked: 11; Cigarettes Per Day: Quit 1980; Second Hand Exposure: Yes; Hx Alcohol Use: Yes Hx Substance Use: No Preferred Language: Kittitian Communication Ability: Effective Visual Impairment: No Limitations Hearing Ability: Hard of Hearing Early Childhood Specialist Required: No Beliefs That Will Affect Care: None marital status: Current Living Situation: Spouse current occupational status: retired current occupation: semi retired RN - teaches at [employer] Feels Safe at Home: Yes Childhood Exposure to Second-Hand Smoke: Yes Assistive Devices: Glasses Review of Systems All systems reviewed & are unremarkable except as noted in HPI & below. Physical Exam On physical examination of the right shoulder, she has about 120 degrees forward elevation 120 degrees of abduction. She has 4 out of 5 motion with the full can test and external rotation. She does have crepitus with range of motion.. Constitutional WD/WN, vitals as above Eyes PERRL, conjunctivae normal, anicteric sclerae ENMT external ear and nose normal, oropharynx normal Neck trachea midline, no thyromegaly Respiratory normal respiratory effort Cardiovascular RRR, no murmur, no edema Gastrointestinal (Abdomen) normal bowel sounds, soft, nontender, no hepatosplenomegaly Psychiatric A+Ox3, euthymic affect Results & Data Results & Data Laboratory Results . Diagnostic Findings X-rays of the right shoulder do show advanced osteoarthritis with flattening of the humeral head and a large inferior osteophyte. There is joint space narrowing, osteophyte formation, and [id number] articulation. PG Care Time/CCT Total # of Minutes Spent Total Time Spent with Patient: Total time spent is greater than 50% in coordination of care (as documented) at patient's floor/unit and/or counseling patient: Coding Level of Care Code None Diagnoses Osteoarthritis of right shoulder M19.011
[~2021-04-27 07:34] MED LIST changes: +ACETAMINOPHEN 500 MG TAB PO SCH; -AMT25 PO; -B-COCAP2 PO; +BUPIVACAINE 0.5 % 5 MG/1 ML PF 10ML VIAL ONE; -BUPRTAB51 PO; -COLE625T PO; -CRS10 PO; +FAMOTIDINE 20 MG TAB PO SCH; -FLX10 PO; +GABAPENTIN 300 MG CAP PO SCH; -HYDC25 PO; -LOVAZA PO; +LR 15ML/HR IV SCH; +LR 60ML/HR IV SCH; -METO50TA8 PO; -OSTEOBIFLEX PO; -OXYC-57 PO; -PRLSR20 PO; -SENN-61 PO; -TRAM-10 PO; +TRANEXAMIC ACID 1,000 MG **IV Intra-op IV SCH; +TRANEXAMIC ACID 1,000 MG **IV Pre-op IV SCH; -[UNRECOGNIZED DRUG - OTHER] PO; +ceFAZolin 2000MG 2,000 MG/15 ML SYR IV SCH; +dexAMETHasone 4 MG TAB PO SCH
[2021-04-27] MEDS ORDERED: ONDANSETRON INJ 2 MG/ML 2 ML VIAL ONE (08:15)
[2021-04-27] MEDS ORDERED: LIDOCAINE 2% 2 ML VIAL/AMP(20MG/ML) INFIL ONE (08:15)
[2021-04-27] MEDS ORDERED: PROPOFOL IV EMULSION 10 MG/ML 20 ML VIAL IV ONE (08:15)
[2021-04-27] MEDS ORDERED: DEXAMETHASONE SOD INJ 4 MG/ML VIAL ONE (08:15)
[2021-04-27] MEDS ORDERED: ROCURONIUM BROMIDE 10 MG/ML 5 ML VIAL IV ONE (08:15)
[2021-04-27] MEDS ORDERED: MIDAZOLAM HCL 1 MG/ML 2ML VIAL ONE (08:16)
[2021-04-27] MEDS ORDERED: fentaNYL citrate 100 MCG/2 ML VIAL ONE (08:16)
--- NOTE | 2021-04-27 09:01 | History & Physical Bridge Note ---
Date of Service April 27, 2021 History & Physical Bridge Note I have examined the patient, reviewed the History & Physical and in the interval since the performance of the History & Physical I have noted the following changes of clinical significance: no changes noted
[2021-04-27] MEDS ORDERED: TRANEXAMIC ACID / 0.7% NACL 1000MG/100ML BAG IV ONE (09:15)
[2021-04-27] MEDS ORDERED: TRANEXAMIC ACID 100 MG/ML 10 ML VIAL IV SCH (09:15)
[2021-04-27] MEDS ORDERED: fentaNYL citrate 100 MCG/2 ML VIAL IV PRN (09:27)
[2021-04-27] MEDS ORDERED: ATROPINE SULFATE 0.1 MG/ML 10ML SYR IV PRN (09:27)
[2021-04-27] MEDS ORDERED: ONDANSETRON INJ 2 MG/ML 2 ML VIAL IV PRN ×2 (09:27→13:13)
[2021-04-27] MEDS ORDERED: KETOROLAC 30 MG/ML VIAL IV PRN (09:27)
[2021-04-27] MEDS ORDERED: LABETALOL HCL IV 5 MG/ML 20ML IV PRN (09:27)
[2021-04-27] MEDS ORDERED: ROPIVACAINE 0.5% HCL/PF 150 MG, BUPIVACAINE 0.75% MPF 20 ML, EPINEPHrine 30MG/30ML (OR ... INFIL SCH (10:00)
[2021-04-27] MEDS ORDERED: SUGAMMADEX SODIUM 200 MG/2 ML VIAL IV ONE (10:32)
[2021-04-27] MEDS ORDERED: KETOROLAC 30 MG/ML VIAL ONE (10:41)
[2021-04-27] MEDS ORDERED: ePHEDrine sulfate 50 MG/ML AMP ONE (10:53)
--- NOTE | 2021-04-27 11:29 | Operative Report ---
PG Post Operative Report Pre & Post Diagnosis Operation Date: 04/27/21 09:55 Pre-Op Diagnosis: Left Shoulder Osteoarthritis with tendinopathy of the long head of the biceps tendon Post-Op Diagnosis: Left Shoulder Osteoarthritis with tendinopathy of the long head of the biceps tendon I identified the patient and participated in the time-out.: Yes Procedure Operation Date: 04/27/21 09:55 Actual Procedures p Left Reverse Total Shoulder Arthroplasty (Left) with open biceps tenodesis as a distinct and separate procedure (modifier 59)- Nate Chapman DO Surgeon Nate Chapman, Transmitter Operator Nate Burroughs PAC Estimated Blood Loss 200 Findings Consistent with Post-Op Diagnosis Specimens Left humeral head Complications none Disposition Disposition: Recovery Room Indications Alvarado is a pleasant 65-year-old female presenting with chronic increasing left s houlder pain. X-rays and clinical examination were diagnostic for advanced osteoarthritis of her left shoulder. She has a history of rotator cuff tears of her right shoulder with repairs. After extensive discussions in the office, she elected proceed with a left reverse shoulder arthroplasty. Description of Procedure A CPT code modifier 59: The long head of the biceps tendon was enlarged and inflamed consistent with tendinopathy. A tenodesis was opted. This was a separate and distinct portion of the procedure. For these reasons, a CPT code modifier 59 will be added to this case. Implants used: I used a [employer]omet Comprehensive reverse total shoulder arthroplasty system with a size 9 press fit micro humeral stem, a +3 offset humeral tray and a standard humeral bearing, a 25 mm small augment baseplate with a 6.5 mm central screw and superior and inferior locking screws, and a size 40 mm eccentric glenosphere. Alvarado arrived at [facility] for the above procedure. She was seen in the preoperative holding area and the operative extremity was identified and signed. She was given a preoperative antibiotic, TXA, and an interscalene nerve block. She was taken back to the operating room, laid on table in supine position, and put under general anesthesia. She was then put into the alyse chchair position. The shoulder was then prepped and draped in sterile fashion. A timeout was done and the patient and the operative extremity was properly identified. A deltopectoral approach was used. Dissection was taken down through the fascia and the deltoid was retracted laterally and the conjoined tendon was retracted medially. The anterior shoulder was exposed. The biceps groove was opened up and the biceps tendon was examined extensively. The biceps tendon demonstrated enlargement and inflammatory changes consistent with longstanding inflammation in the context of osteoarthritis and cuff arthropathy. The long head of the biceps tendon was then tenodesed to the upper border of the pectoralis major. This was a separate and distinct portion of the procedure. The subscapularis was then directly released off the lesser tuberosity with a peel technique. The inferior capsule was released and the humeral head was dislocated. A canal finding reamer was sent down the center of the humeral canal. Sequential reaming up to a size 9 reamer was done. Off that reamer, a proximal humeral resection guide was placed. The proximal humerus was resected at 135 of inclination and 25 of retroversion. Osteophytes were then removed and the glenoid was exposed. Time was spent doing a complete capsular and labral release. The glenoid guide was then placed in the inferior aspect of the glenoid. A 3.2 mm Steinmann pin was then placed into the glenoid vault at 10 of inclination. The glenoid baseplate was then reamed. The final size 25 mm small augment baseplate was then impacted in the place. A 6.5 mm central screw was then placed followed by superior and inferior locking screws. A 40 mm eccentric glenosphere was then impacted into place. Surrounding soft tissues were then injected with 100 cc an orthopedic pain control cocktail. The proximal humerus was then exposed. Sequential broaching of the humerus up to a size 9 broach was done. Off that broach a +3 offset humeral tray was trialed. The shoulder was then reduced, brought through a full range of motion, and felt to be stable. The shoulder was then dislocated and the broach was removed. The final size 9 micro press-fit humeral stem was then impacted into place. A standard humeral bearing was then snapped onto a +3 offset humeral tray. The humeral tray was then impacted onto the humeral stem. The shoulder was once again reduced, brought through a full range of motion, and felt to be stable. The subscapularis was then tenodesed back to the lesser tuberosity with transosseous FiberWire sutures and side to side sutures with the arm in 45 of external rotation. A dilute betadyne lavage was then done for 3 minutes. The joint was then irrigated with normal saline solution. Hemostasis was obtained. The interval was closed with 2-0 Vicryl suture. The skin was then closed with 2-0 Vicryl and alfonzo. A Silverlon dressing was placed and the arm was rested in a regular arm sling. She was then extubated and transferred to a hospital bed. She taken to the postanesthesia care unit in stable condition. She tolerated the procedure well. Nate Burroughs PA-C, was present for the entire procedure. He was critical for patient positioning, prepping, draping, retraction exposure, wound closure and application of sterile dressing. I attest to the content of the Intraoperative Record and any orders documented therein. Any exceptions are noted below.
--- NOTE | 2021-04-27 12:23 | Anesthesiology Progress Note ---
Date of Service April 27, 2021 Anesthesia Post Procedure Vital Signs Vital Signs: Temp Pulse Pulse Resp BP Pulse Ox 04/27/21 12:10 74 20 154/94 H 98 04/27/21 12:00 74 20 156/88 H 100 04/27/21 11:50 71 18 144/91 H 99 04/27/21 11:47 36.1 C L 74 14 141/83 H 99 04/27/21 08:32 36.8 C 88 20 184/97 H 99 Transfer of Care Handoff Completed per policy Notes Mental Status: alert / awake / arousable Patient Amnestic to Procedure: Yes Nausea / Vomiting: adequately controlled Pain: adequately controlled Airway Patency, RR, SpO2: stable & adequate BP & HR: stable & adequate Hydration State: stable & adequate Anesthetic Complications: no major complications apparent
--- NOTE | 2021-04-27 13:09 | XRay Report ---
XR shoulder LT min 2V routine CLINICAL HISTORY: Post shoulder surgery COMPARISON: None. DISCUSSION: There are postsurgical changes present within the cervicothoracic spine. There are postsu rgical changes of a reverse total left shoulder arthroplasty. There is gas present within the soft ti ssues consistent with recent surgery. There are skin alfonzo present. There is no dislocation. There is elevation left hemidiaphragm. There are left basilar atelectatic changes. IMPRESSION: Postsurgical changes of a reverse total left shoulder arthroplasty. No evidence of disloc ation. ACT 112: Negative or not required by law. Electronically signed by: Eder Lew M.D. 04/27/2021 1:07 PM
[2021-04-27] MEDS ORDERED: oxyCODONE HCL IR 5 MG TAB (IMMEDIATE RELEASE) PO PRN (13:13)
[2021-04-27] MEDS ORDERED: HYDROmorphone INJ 0.5 MG/0.5 ML SYR IV PRN (13:13)
[2021-04-27] MEDS ORDERED: CETIRIZINE HCL 10 MG TABLET PO PRN (13:13)
[2021-04-27] MEDS ORDERED: MAGNESIUM HYDROXIDE SUSP 30 ML UDC PO PRN (13:13)
[2021-04-27] MEDS ORDERED: bisacodyL 10 MG SUPP PR PRN (13:13)
[2021-04-27] MEDS ORDERED: NALOXONE HCL 0.4 MG/1 ML VIAL/CARP IV PRN (13:13)
[2021-04-27] MEDS ORDERED: METOCLOPRAMIDE HCL INJ 5 MG/ML 2 ML VIAL IV PRN (13:13)
[2021-04-27] MEDS ORDERED: PHARMACY GLYCEMIC MGMT CONSULT PRN (15:15)
--- NOTE | 2021-04-27 15:22 | Pharmacy Report ---
Pharmacy Glycemic Short Note 2 - Date of Service April 27, 2021 - Glycemic Short BSG Results (Last 24 hours): 04/27/21 04/27/21 08:15 11:50 POC Glucose 110 H 150 H OUTPATIENT ANTIDIABETIC REGIMEN: * Metformin 1000 mg PO qAM * HbA1c: 6.1% (03/28/21) ASSESSMENT: * RADHA is a 65 year old female POD #0 s/p left reverse total shoulder arthroplasty * Patient received 8 mg PO dexamethasone in OR * Preoperative BSG of 110 mg/dL and postoperative BSG of 150 mg/dL PLAN FOR INPATIENT GLYCEMIC CONTROL: * Hold outpatient oral diabetes medications * Consider resuming metformin in AM * Basal insulin * conservative Lantus 10 units SQ x 1 (slightly less than 0.2 unit/kg) * Bolus insulin * NovoLog per scale ACHS or Q6hrs while NPO * Goal Range: Low 110 mg/dL - High 140 mg/dL * Correction Factor: 25 mg/dL/unit * Nutritional / Prandial insulin per carb ratio of 1 unit per 9 grams CHO consumed * 0000 check with same parameters PLAN FOR DISCHARGE: * HbA1c of 6.1% suggests excellent outpatient glycemic control * Provided renal function is at baseline, continue metformin at discharge
[2021-04-27] MEDS ORDERED: DEXTROSE 50% 50 ML SYRINGE IV PRN (15:30)
[2021-04-27] MEDS ORDERED: GLUCOSE 10 TABS/TUBE PO PRN (15:30)
[2021-04-27] MEDS ORDERED: GLUCAGON FOR INJ 1 MG VIAL IM PRN (15:30)
[2021-04-27] MEDS ORDERED: GLUCOSE 40% GEL 15 GM TUBE PO PRN (15:30)
[2021-04-27] MEDS ORDERED: CARBOHYDRATES FOR HYPOGLYCEMIA PO PRN (15:30)
[2021-04-27] MEDS: ACETAMINOPHEN 500 MG TAB PO SCH ×2 (16:09→21:27)
[2021-04-27] MEDS: SODIUM CHLORIDE 0.9% 1000ML 1,000 ML IV SCH (16:09)
[2021-04-27] MEDS: LANTUS PER UNIT CHARGE SQ ONE ×2 (16:10→16:24)
[2021-04-27] MEDS: POTASSIUM CHLORIDE CRTAB 20 MEQ TABCR PO SCH ×2 (16:10→21:27)
[2021-04-27] MEDS: KETOROLAC TROMETHAMINE 15 MG/ML VIAL IV SCH ×2 (16:11→21:29)
[2021-04-27] MEDS: INSULIN ASPART 100 UNITS/ML 3 ML PEN SC SCH ×2 (18:40→22:01)
[2021-04-27] MEDS: ceFAZolin 2000MG 2,000 MG/15 ML SYR IV SCH (18:42)
[2021-04-27] MEDS ORDERED: AMITRIPTYLINE HCL 50 MG TAB PO SCH (21:00)
[2021-04-27] MEDS ORDERED: SENNA 8.6 MG TAB PO SCH (21:00)
[2021-04-27] MEDS: DOCUSATE SODIUM 100 MG CAP PO SCH (21:26)
[2021-04-28] MEDS ORDERED: INSULIN ASPART 100 UNITS/ML 3 ML PEN SC SCH
[2021-04-28] MEDS: ceFAZolin 2000MG 2,000 MG/15 ML SYR IV SCH (01:32)
[2021-04-28] MEDS: SODIUM CHLORIDE 0.9% 1000ML 1,000 ML IV SCH (02:25)
[2021-04-28] MEDS: KETOROLAC TROMETHAMINE 15 MG/ML VIAL IV SCH ×2 (05:13→11:35)
[2021-04-28] MEDS: ACETAMINOPHEN 500 MG TAB PO SCH (05:13)
[2021-04-28] MEDS ORDERED: TRANEXAMIC ACID 100 MG/ML 10 ML VIAL IV SCH (06:00)
--- NOTE | 2021-04-28 07:47 | Orthopedic Progress Note ---
Date of Service April 28, 2021 Assessment & Plan (1) Status post reverse arthroplasty of left shoulder: Overall she is doing very well. She denies any much pain in the left shoulder. She will be seen by physical therapy today for ambulation and range of motion exercises. She can be discharged home later today. She will follow- up with orthopedics in 2 weeks. Nichelle De Jesus was seen and examined at bedside this morning. Overall she is doing well. She denies any pain in the left shoulder. She was able to get some sleep last night. She has no complaints.. Review of Systems All systems reviewed & are unremarkable except as noted in HPI & below. Physical Exam On physical examination of the left shoulder, the dressing is clean and dry. Her radial, median, and ulnar nerves are checked intact at her wrist. Her axillary nerve was not checked yet. She is wearing her sling as instructed.. Results & Data Results & Data Laboratory Results . Diagnostic Findings Postoperative x-rays of the left shoulder show the prosthesis to be in anatomic alignment without any evidence of fracture, dislocation, or loosening. PG Care Time/CCT Total # of Minutes Spent Total Time Spent with Patient: Total time spent is greater than 50% in coordination of care (as documented) at patient's floor/unit and/or counseling patient: Coding Level of Care Code 06033 Post Operative Follow-Up Diagnoses Status post reverse arthroplasty of left shoulder Z96.612
--- NOTE | 2021-04-28 07:48 | Discharge Summary ---
Date of Service April 28, 2021 Admission HPI (Per Admitting) Lzia is a pleasant six 5-year-old female has been dealing with chronic increasing left shoulder pain. I did a right shoulder arthroscopy on her 4 years ago with rotator cuff repair. She a lot of arthritis at that time. Unfortunate she has gone on to develop worsening arthritis of the shoulder. After failing extensive conservative treatment, she has elected proceed with a right reverse shoulder arthroplasty.. Admission Exam (Per Admitting) On physical examination of the right shoulder, she has about 120 degrees forward elevation 120 degrees of abduction. She has 4 out of 5 motion with the full can test and external rotation. She does have crepitus with range of motion.. Principal Diagnosis Same as "Discharge Diagnosis" noted below under Discharge Instructions. Discharge Exam On physical examination of the left shoulder, the dressing is clean and dry. Her radial, median, and ulnar nerves are checked intact at her wrist. Her axillary nerve was not checked yet. She is wearing her sling as instructed.. Discharge Data Procedures Performed Operation Date: 04/27/21 09:55 Actual Procedures p Left Reverse Total Shoulder Arthroplasty (Left) - Nate Chapman DO Ordered Studies 04/27/21 05:00 US - OR guided needle placemen Routine Hospital Course (1) Status post reverse arthroplasty of left shoulder: On 04/27/2021 Liza arrived at [facility] and underwent a left reverse shoulder arthroplasty without complication. She had a general anesthetic and a left interscalene nerve block. Postoperatively she was placed in a sling and transferred to the general orthopedic floors. Her hospital course was uneventful. On postop day #1 her vital signs were stable and her pain was well controlled. She was able to participate well with physical therapy doing ambulation and range of motion exercises. She was then discharged home. She will follow-up with orthopedics in 2 weeks. PG Care Time/CCT Total # of Minutes Spent Total Time Spent with Patient: Total time spent is greater than 50% in coordination of care (as documented) at patient's floor/unit and/or counseling patient: Discharge Plan Discharge Items Patient Disposition: Home - Home Health Services Reason For Visit: Left Shoulder Osteoarthritis Discharge Diagnosis: Left reverse shoulder replacement Activity: As commented below Non-emergency contact: Surgeon Call non-emergency contact if: your wound has increased redness and your wound has increased drainage Follow-up/Referrals: Vivien Berrios MD [Primary Care Provider] - Diet: Regular Addtl Attending Provider Instructions: Activity and Therapy Recommendations: * If you are using [facility] then therapy will be provided at your home until they feel you have accomplished all of your goals. * If you are using [facility] then Physical Therapy will be provided until they feel you are ready to start Outpatient Physical Therapy. * If you are not using home therapy then Outpatient Physical Therapy should start about 3-5 days from your day of surgery. Therapy will last about 8-12 weeks * Wear your sling for 3 weeks, unless otherwise instructed. You may remove your sling to shower and to dress, but otherwise, you should be in your sling at all times, including while sleeping * The shoulder replacement is very stable and you can use your hand while in the sling * You were shown a series of exercises in the hospital. Do these exercises daily including the exercises you were shown in physical therapy. Medications: * Narcotic You will likely be sent home from the hospital with a prescription for the narcotic pain medication that worked best throughout your stay. * Other medications may be prescribed for specific circumstances. If you have any questions, please call the office at . * Resume previous home medications unless otherwise instructed Dressing Care: Leave the Silverlon dressing in place for 7 days. After 7 days you may remove the dressing. If the incision is not draining then you may leave the alfonzo open to air. If there is a little bit of drainage or if the alfonzo are getting stuck on your clothing then cover the incision with a dry dressing. The alfonzo will be removed at your 2 week follow-up appointment. Showering: You may shower with the Silverlon dressing in place. Do not let the shower spray hit the dressing directly. Pat the Silverlon dressing dry. If the dressing becomes wet underneath, then simply remove the dressing. Keep the incision dry until you are 7 days out from the day of surgery. After 7 days you may remove the Silverlon dressing and shower with the alfonzo exposed. Let soapy water run over the alfonzo and pat them dry. Do not scrub or soak the incision. Things To Watch For: * Drainage from the incision site that occurs more than one week after your surgery. * Increased redness at the incision site. * Fever above 102 degrees Fahrenheit. * Unusual chest pain or shortness of breath. * Call [facility] at with any of the above problems Follow-Up Visit: Follow-up with Dr. Chapman's PA (Nate Burroughs) 2-3 weeks after your day of surgery. He will remove your alfonzo and answer any questions. If you have any additional questions or concerns, Dr Chapman is usually in the office at the same time and will be available An appointment was probably scheduled when you signed-up for surgery in the office. If you have any questions call More detailed instructions as well as Frequently Asked Questions were provided in a folder by our office when you signed-up for surgery. Please review these instructions when you get home. If you have any further questions or concerns, please feel free to call the office at [phone] Pending Studies at Discharge: No Stand-Alone Forms: My [facility] Medications and DC Order Prescriptions: New oxycodone 5 mg Tablet 5 mg PO Q4H PRN (Reason: pain) Qty: 30 RF: 0 Continued naproxen sodium [Aleve] 220 mg capsule 220 mg PO Q12H RF: 0 Zyrtec 10 mg capsule 10 mg PO DAILY PRN (Reason: ALLERGY RELIEF) RF: 0 magnesium oxide 500 mg capsule 500 mg PO QAM RF: 0 losartan 25 mg tablet 25 mg PO QAM RF: 0 metformin 500 mg tablet 1,000 mg PO QAM RF: 0 multivitamin [Daily Multi-Vitamin] tablet 1 tab PO QAM RF: 0 metoprolol succinate 25 mg capsule,sprinkle,ER 24hr 25 mg PO QAM RF: 0 turmeric root extract 500 mg capsule 500 mg PO QAM RF: 0 valacyclovir 500 mg tablet 500 mg PO DAILY RF: 0 calcium 600 mg Capsule 600 mg PO BID RF: 0 amitriptyline 25 mg Tablet 50 mg PO HS RF: 0 vitamin B complex Tablet 1 tab PO QAM RF: 0 glucosamine-chondroitin [Osteo Bi-Flex] 250-200 mg Tablet 2 tab PO QAM RF: 0 folic acid 0.8 mg Capsule 0.8 mg PO QAM RF: 0 cholecalciferol (vitamin D3) [Vitamin D3] 125 mcg (5,000 unit) Tablet 250 mcg PO QAM RF: 0 potassium chloride 20 mEq Tablet Extended Release 20 meq PO TID RF: 0 omeprazole magnesium [Prilosec OTC] 20 mg tablet,delayed release (DR/EC) 20 mg PO QAM RF: 0 acetaminophen [Acetaminophen Extra Strength] 500 mg Tablet 500 mg PO BID RF: 0 Discharge Orders: Discharge Order (Routine); Ordered 04/28/21 Ordered By: Nate Low/Other Patient Handouts: Managing Type 2 Diabetes, A1C Admission Data Admit Date/Time: 04/27/21 11:49 Attending Provider: Nate Chapman Admit Provider: Nate Chapman Primary Care Provider: Vivien Berrios
[2021-04-28 08:15] VITALS: BP 162/100; PULSE 91; TEMP 98.4; O2SAT 94
[2021-04-28] MEDS: INSULIN ASPART 100 UNITS/ML 3 ML PEN SC SCH (08:18)
[2021-04-28] MEDS: DOCUSATE SODIUM 100 MG CAP PO SCH (08:19)
[2021-04-28] MEDS: POTASSIUM CHLORIDE CRTAB 20 MEQ TABCR PO SCH (08:23)
[2021-04-28] MEDS ORDERED: metFORMIN HCL ER 500 MG TABCR PO ONE (08:45)
[2021-04-28] MEDS ORDERED: valACYclovir HCL 500 MG TABLET PO SCH (09:00)
[2021-04-28] MEDS ORDERED: MAGNESIUM OXIDE 400 MG TAB PO SCH (09:00)
[2021-04-28] MEDS ORDERED: LOSARTAN POTASSIUM 25 MG TAB PO SCH (09:00)
[2021-04-28] MEDS ORDERED: PANTOprazole 40 MG TAB PO SCH (09:00)
[2021-04-28] MEDS ORDERED: MULTIVITAMIN TAB PO SCH (09:00)
[2021-04-28] MEDS ORDERED: METOPROLOL SUCC 25MG EXT REL TAB PO SCH (09:00)
[2021-04-29] MEDS ORDERED: metFORMIN HCL ER 500 MG TABCR PO SCH (07:30)
== END 2021-04-28 11:40 | disposition home or self-care (01) | DRG 483 ==
LOC: ASU 07:34 → 3W 11:49

== ENCOUNTER 2021-07-09 01:06 | Observation (INO) ==
[2021-07-09 01:29] VITALS: TEMP 97.3
[2021-07-09] MEDS ORDERED: SODIUM CHLORIDE 0.9% 500 ML IV SCH (02:00)
[2021-07-09 02:13] LABS: Basophils # (auto) 0.02 K/uL (0-0.2); Basophils % (auto) 0.3 %; Eosinophils # (auto) 0.05 K/uL (0-0.5); Eosinophils % (auto) 0.7 %; Hematocrit (blood only) 29.8 % (37-47); Hemoglobin 9.7 g/dL (12.0-16.0); Immature Granulocytes # (auto) 0.02 K/uL (0.00-0.02); Immature Granulocytes % (auto) 0.3 %; Lymphocytes # (auto) 0.94 K/uL (1.2-3.4); Lymphocytes % (auto) 12.8 %; Mean Corpuscular Hemoglobin 27.7 pg (25-34); Mean Corpuscular Hgb Conc 32.6 g/dL (32-36); Mean Corpuscular Volume 85.1 fL (80-100); Mean Platelet Volume 9.3 fL (7.4-10.4); Monocytes # (auto) 0.54 K/uL (0.11-0.59); Monocytes % (auto) 7.3 %; Neutrophils # (auto) 5.78 K/uL (1.4-6.5); Neutrophils % (auto) 78.6 %; Platelet Count 277 K/uL (130-400); RDW Coefficient of Variation 14.8 % (11.5-14.5); RDW Standard Deviation 45.5 fL (36.4-46.3); White Blood Count 7.35 K/uL (4.8-10.8)
[2021-07-09 02:21] LABS: Alanine Aminotransferase 34 U/L (12-78); Albumin Level 3.4 gm/dl (3.4-5.0); Aspartate Aminotransferase 41 U/L (15-37); BUN Creatinine Ratio 21.1 (10-20); Blood Urea Nitrogen 17 mg/dl (7-18); Calcium 8.8 mg/dl (8.5-10.1); Carbon Dioxide 25 mmol/L (21-32); Chloride 107 mmol/L (98-107); Est GFR (African American) 87.1 ml/min; Est GFR (Non-African American) 75.2 ml/min; Glucose 159 mg/dl (70-99); Magnesium 1.7 mg/dl (1.8-2.4); Sodium 141 mmol/L (136-145)
[2021-07-09 02:26] LABS: Albumin Globulin Ratio 1.1 (0.9-2); Alkaline Phosphatase 101 U/L (45-117); Bilirubin,Total 0.3 mg/dl (0.2-1); Globulin 3.1 gm/dl (2.5-4.0); Total Protein 6.5 gm/dl (6.4-8.2); Troponin I < 0.015 ng/ml (0-0.045)
[2021-07-09 02:33] LABS: Acetaminophen < 2 ug/ml (10-30); Salicylate < 1.7 mg/dl (2.8-20)
[2021-07-09 02:57] LABS: Appearance Urine Clear (Clear); Bilirubin Urine Negative (Negative); Blood Urine Negative (Negative); Color Urine Yellow; Glucose Urine UA Negative (Negative); Ketones Urine Negative (Negative); Leukocyte Esterase Urine Negative (Negative); Nitrite Urine Negative (Negative); Protein Urine Negative (Negative); Specific Gravity Urine 1.006 (1.000-1.030); Urobilinogen Urine Negative (Negative)
--- NOTE | 2021-07-09 04:47 | History & Physical Report ---
Date of Service July 09, 2021 Assessment & Plan (1) Altered level of consciousness: Plan: Generally healthy 66 yo F admitted for monitoring after altered level of consciousness secondary to accidental overdose. Altered level of consciousness - heavily sedated s/p percocet, 2 benadryl, amitryptiline ingestion at home - s/p 500cc bolus in ER - maintenance fluids with 120/hr - on oxycodone 30 mme/day? continued but hold for sedation - hold nighttime amitryptiline - no antipsychotics/sedating medications - Q4 neuro checks - CT head negative - NPO, aspiration precautions - bipap HS HTN - cont losartan, metoprolol when awake DVT ppx: low risk FEN/GI: NPO Code Status: Full Code Dispo: Med/Tele, discharge home when stable (2) Accidental overdose: History of Present Illness Primary Care Provider: Vivien Berrios MD 66 yo F with hx HTN brought to ER for accidental OD. patient normally takes amitriptyline at night, and has been experiencing hip pain while packing up house to move. This evening she took 2 Benadryl to help her sleep, in addition to an old percocet from prior shoulder surgery and her amitriptyline. Initially confused in ER, now heavily sedated and asleep as side effect of medications. unable to get further HPI due to level of consciousness. Allergies Allergy/AdvReac Type Severity Reaction Status Date / Time niacin Allergy Severe ITCHING Verified 07/09/21 02:59 AND FLUSH FEELING atorvastatin [From Lipitor] Allergy Intermediate muscle Verified 07/09/21 02:59 pains ezetimibe [From Vytorin] Allergy Intermediate muscle Verified 07/09/21 02:59 pains lisinopril Allergy Intermediate Cough Verified 07/09/21 02:59 rosuvastatin [From Crestor] Allergy Intermediate Muscle Pain Verified 07/09/21 02:59 simvastatin [From Vytorin] Allergy Intermediate Muscle Pain Verified 07/09/21 02:59 Sulfa (Sulfonamide Allergy Rash Verified 07/09/21 02:59 Antibiotics) codeine AdvReac Intermediate Nausea Verified 07/09/21 02:59 prochlorperazine AdvReac Unknown EXTRAPYRAMIDAL Verified 07/09/21 02:59 SIDE EFFECTS/MOUTH TWITCHING Home Medications Medication Instructions Recorded Confirmed Type losartan 25 mg tablet 25 mg PO QAM 03/23/19 07/09/21 History multivitamin (Daily Multi-Vitamin) 1 tab PO QAM 03/23/19 07/09/21 History valacyclovir 500 mg tablet 500 mg PO DAILY tab 12/29/19 07/09/21 History cetirizine 10 mg capsule (Zyrtec) 10 mg PO DAILY PRN 12/13/20 07/09/21 History magnesium oxide 500 mg capsule 500 mg PO QAM 12/13/20 07/09/21 History metoprolol succinate 25 mg capsule 25 mg PO QAM ea 12/13/20 07/09/21 History sprinkle, ext. release 24 hr naproxen sodium 220 mg capsule 220 mg PO Q12H 12/13/20 07/09/21 History (Aleve) turmeric root extract 500 mg 500 mg PO QAM cap 12/13/20 07/09/21 History capsule acetaminophen 500 mg tablet 500 mg PO BID 03/19/21 07/09/21 History (Acetaminophen Extra Strength) amitriptyline 25 mg tablet 50 mg PO HS 03/19/21 07/09/21 History calcium 600 mg capsule 600 mg PO BID 03/19/21 07/09/21 History cholecalciferol (vitamin D3) 125 250 mcg PO QAM 03/19/21 07/09/21 History mcg (5,000 unit) tablet (Vitamin D3) folic acid 0.8 mg capsule 0.8 mg PO QAM 03/19/21 07/09/21 History glucosamine-chondroitin 250 mg-200 2 tab PO QAM 03/19/21 07/09/21 History mg tablet (Osteo Bi-Flex) omeprazole magnesium 20 mg 20 mg PO QAM 03/19/21 07/09/21 History tablet,delayed release (Prilosec OTC) potassium chloride 20 mEq 20 meq PO TID 03/19/21 07/09/21 History tablet,extended release vitamin B complex 1 tab PO QAM 03/19/21 07/09/21 History oxycodone 5 mg tablet 5 mg PO Q6H PRN #20 tab 05/14/21 07/09/21 Rx metformin 500 mg tablet,extended 1,000 mg PO DAILY 07/09/21 07/09/21 History release 24 hr Past Med/Surg History Medical History (Updated 07/09/21 @ 09:03 by Sukhdev Jj MD) Degenerative disc disease Diabetes mellitus, type 2 Well controlled and stable A1C 6.1 on 03/28/21 Fibromyalgia Currently has flare GERD (gastroesophageal reflux disease) Well controlled and stable History of anemia Stable blood count since menopause History of kidney stones Not current issues History of TMJ disorder Improved with dental implants Hx of basal cell carcinoma Squamous and basal cell carcinoma - s/p removal Prone to keloids Hx of breast cancer LEFT- 2019 S/p left breast lumpectomy with LN dissection and chemo/XRT Hypercholesterolemia Hypertension Irregular heart beat Left bundle branch block CHRONIC- FOLLOWS WITH DR. RUBIN Lymphedema of left arm HX OF- IMPROVED WITH PT Nonischemic cardiomyopathy Mild- EF as low as 45-50% s/p chemo- since resolved ESTELLA (obstructive sleep apnea) NO DEVICE USING CURRENLTY (NEEDS SUPPLIES) HAS LOST WEIGHT - FEELS SYMPTOMS IMPROVED- HAS NOT HAD REPEAT SLEEP STUDY Surgical History (Updated 04/27/21 @ 14:27 by Nate Chapman DO) H/O abdominoplasty H/O ankle fusion LEFT H/O cervical spine surgery X 3 (HARDWARE) "LIMITED ROM" BOTH WITH SIDE TO SIDE AND FLEXION AND EXTENSTION FUSED C3-T3 H/O section X 2 H/O tubal ligation History of ankle surgery LEFT>surgery -2018 , bone marrow transplant (FAILED) History of cataract surgery RT/LEFT History of colonoscopy History of esophagogastroduodenoscopy (EGD) History of laparoscopy History of lumbar fusion History of repair of rotator cuff RT X 2 History of tooth extraction WITH DENTAL IMPLANTS Hx of squamous cell carcinoma excision S/P bilateral breast reduction surgery 2002 S/P lumpectomy, left breast WITH CHEMO AND RADIATION Family History Mother , age 59 Emphysema lung Father , age 56 Myocardial infarction Family history of diabetes mellitus Sister Vaginal bleeding Brother No problems noted. Son No problems noted. Son No problems noted. Grandmother (Maternal) Colon cancer Family history of diabetes mellitus Grandfather (Paternal) Colon cancer Prostate cancer Other No family history of adverse response to anesthesia Social History Smoking Status: Former smoker packs per day: 2; Years Smoked: 11; Cigarettes Per Day: Quit 1980; Smoking End Date: 1980; Second Hand Exposure: Yes; Hx Alcohol Use: Yes Hx Substance Use: No Preferred Language: Yoruba Communication Ability: Effective Visual Impairment: No Limitations Hearing Ability: Hard of Hearing Gallery Or Museum Guide Required: No Beliefs That Will Affect Care: None marital status: Current Living Situation: Spouse current occupational status: retired current occupation: semi retired RN - teaches at [employer] Feels Safe at Home: Yes Safety Concerns: Feels Safe At This Time Childhood Exposure to Second-Hand Smoke: Yes Assistive Devices: None Review of Systems Review of Systems: Unobtainable due to reduced consciousness Physical Exam Physical Exam: Constitutional: heavily asleep, resting comfortably Cardiac: RRR, no mrg Pulm: breathing easily on room air, satting 100%, no rhochis, crackles, wheezes GI: nontender, nondistended extremities: no peripheral edema, 2+ peripheral pulses Results & Data Results & Data ([facility]) Vital Signs (Past 12 Hours) Vital Signs Temp Pulse Resp BP Pulse Ox 07/09/21 01:49 84 18 97 07/09/21 01:19 36.3 C L 78 18 149/85 H 97 Laboratory Results Laboratory Results WBC 7.35 K/uL (4.8-10.8) 07/09/21 01:30 RBC 3.50 M/uL (4.2-5.4) L 07/09/21 01:30 Hgb 9.7 g/dL (12.0-16.0) L 07/09/21 01:30 Hct 29.8 % (37-47) L 07/09/21 01:30 MCV 85.1 fL (80-100) 07/09/21 01:30 MCH 27.7 pg (25-34) 07/09/21 01:30 MCHC 32.6 g/dL (32-36) 07/09/21 01:30 RDW Std Deviation 45.5 fL (36.4-46.3) 07/09/21 01:30 RDW Coeff of Elodia 14.8 % (11.5-14.5) H 07/09/21 01:30 Plt Count 277 K/uL (130-400) 07/09/21 01:30 MPV 9.3 fL (7.4-10.4) 07/09/21 01:30 Immature Gran % (Auto) 0.3 % 07/09/21 01:30 Neut % (Auto) 78.6 % 07/09/21 01:30 Lymph % (Auto) 12.8 % 07/09/21 01:30 Walsh % (Auto) 7.3 % 07/09/21 01:30 Eos % (Auto) 0.7 % 07/09/21 01:30 Baso % (Auto) 0.3 % 07/09/21 01:30 Neut # (Auto) 5.78 K/uL (1.4-6.5) 07/09/21 01:30 Lymph # (Auto) 0.94 K/uL (1.2-3.4) L 07/09/21 01:30 Walsh # (Auto) 0.54 K/uL (0.11-0.59) 07/09/21 01:30 Eos # (Auto) 0.05 K/uL (0-0.5) 07/09/21 01:30 Baso # (Auto) 0.02 K/uL (0-0.2) 07/09/21 01:30 Immature Gran # (Auto) 0.02 K/uL (0.00-0.02) 07/09/21 01:30 Sodium 141 mmol/L (136-145) 07/09/21 01:30 Potassium 4.0 mmol/L (3.5-5.1) 07/09/21 01:30 Chloride 107 mmol/L (98-107) 07/09/21 01:30 Carbon Dioxide 25 mmol/L (21-32) 07/09/21 01:30 Anion Gap 9.0 (3-11) 07/09/21 01:30 BUN 17 mg/dl (7-18) 07/09/21 01:30 Creatinine 0.81 mg/dl (0.6-1.2) 07/09/21 01:30 Est Cr Clr Drug Dosing Not Reportable 07/09/21 01:30 Est GFR ( Amer) 87.1 ml/min 07/09/21 01:30 Est GFR (Non-Af Amer) 75.2 ml/min 07/09/21 01:30 BUN/Creatinine Ratio 21.1 (10-20) H 07/09/21 01:30 Glucose 159 mg/dl (70-99) H 07/09/21 01:30 Calcium 8.8 mg/dl (8.5-10.1) 07/09/21 01:30 Magnesium 1.7 mg/dl (1.8-2.4) L 07/09/21 01:30 Total Bilirubin 0.3 mg/dl (0.2-1) 07/09/21 01:30 AST 41 U/L (15-37) H 07/09/21 01:30 ALT 34 U/L (12-78) 07/09/21 01:30 Alkaline Phosphatase 101 U/L (45-117) 07/09/21 01:30 Troponin I < 0.015 ng/ml (0-0.045) 07/09/21 01:30 Total Protein 6.5 gm/dl (6.4-8.2) 07/09/21 01:30 Albumin 3.4 gm/dl (3.4-5.0) 07/09/21 01:30 Globulin 3.1 gm/dl (2.5-4.0) 07/09/21 01:30 Albumin/Globulin Ratio 1.1 (0.9-2) 07/09/21 01:30 Urine Color Yellow 07/09/21 02:00 Urine Appearance Clear (Clear) 07/09/21 02:00 Urine pH 5.0 (4.5-7.5) 07/09/21 02:00 Ur Specific Hubbard 1.006 (1.000-1.030) 07/09/21 02:00 Urine Protein Negative (Negative) 07/09/21 02:00 Urine Glucose (UA) Negative (Negative) 07/09/21 02:00 Urine Ketones Negative (Negative) 07/09/21 02:00 Urine Blood Negative (Negative) 07/09/21 02:00 Urine Nitrite Negative (Negative) 07/09/21 02:00 Urine Bilirubin Negative (Negative) 07/09/21 02:00 Urine Urobilinogen Negative (Negative) 07/09/21 02:00 Ur Leukocyte Esterase Negative (Negative) 07/09/21 02:00 Salicylates < 1.7 mg/dl (2.8-20) L 07/09/21 01:30 Acetaminophen < 2 ug/ml (10-30) L 07/09/21 01:30 Ethyl Alcohol mg/dL < 3.0 mg/dl (0-3) 07/09/21 02:02 COVID-19 Eval Order Covid19 at [facility] 07/09/21 05:00 Supervising Physician Co-Signing Physician Notes Attending addendum: I have physically seen this patient, have supervised the medical residents activities, and agree with the H&P unless as otherwise noted. Assessment and Plan: Altered level of consciousness- Admit to monitored bed Use of Percocet, to Benadryl and amitriptyline ingestion at home IV fluid bolus 500 cc followed by maintenance fluids under 20 mils per hour Every [address] head negative Aspiration precautions N.p.o. BiPAP at bedtime Hypertension- Metoprolol and losartan on hold As needed hydralazine IV Remaining orders and notations as noted Resident Activity Tracking Resident Involvement: Resident Care Provided Care Provided: Adult Hospital Medicine
--- NOTE | 2021-07-09 05:25 | Emergency Department Note ---
Impression & Plan Altered mental status, Accidental overdose, Anemia The patient will be admitted to the [facility] service ED Provider Note NAME: CARLEEN MACE AGE: 66 SEX: F ARRIVES VIA: Ambulance INFORMANT: Patient EMS ED PROVIDER(S): Lorrie Montejo DO CHIEF COMPLAINT: Altered mental status PLAN: Disposition: Admitted to the [facility] Condition: Stable MEDICAL DECISION MAKING: This is a 66-year-old female patient who presents to the emergency department by EMS after being found with an altered mental status. CT scan of the brain was unremarkable. By history, it seems that the patient took her amitriptyline, a leftover Percocet for left hip pain, and to Benadryl to help her sleep. This seems to have led to an altered mental status. The patient was pale on physical exam and was noted to be anemic with hemoglobin less than 10. This is a drop of 2 g of hemoglobin since March. The patient's Hemoccult testing was negative. Patient's initial clinical presentation appeared to be consistent with a Benadryl overdose. I discussed the case with the [facility] and they will evaluate for further management. Triage Nursing notes reviewed and agree with them. Additional history obtained from patient's who is a physician and arrived at the bedside. Vital Signs: reviewed and unremarkable Differential diagnosis: TIA, CVA, acute delirium, drug overdose, intracranial hemorrhage, hypoglycemia Diagnostics interpreted by me: ECG: Normal sinus rhythm with a left bundle branch block at a rate of 77. This is unchanged from March 28, 2021. There are no new ischemic changes and no ecto py. Cardiac Monitoring: Normal sinus rhythm at a rate of 84 Laboratory studies: See below Imaging studies: As per stat read CT head: Motion artifact. No evidence of acute intracranial process HPI: 66/F arrives for evaluation of altered mental status. EMS explained that the patient was found in her basement by a family member with an altered mental status. The patient apparently was working throughout the day of preparation for a move. She admits to taking her usual dose of amitriptyline tonight plus she had been having some new onset left hip pain so took a leftover Percocet that she had. She also took 2 Benadryl for sleep. The patient does not remember going to her basement or laying down on the ground there. She does not believe that she fell there. He denies any pain or acute traumatic injuries. ROS: See above HPI for pertinent positives & negatives. A total of 10 systems reviewed and were otherwise negative. PAST MEDICAL HISTORY:See Below PAST SURGICAL HISTORY:See Below FAMILY HISTORY:See Below SOCIAL HISTORY:See Below HOME MEDICATIONS:See list ALLERGIES:See list VITALS:See Below PHYSICAL EXAMINATION: HEENT: Head - normocephalic and atraumatic Pupils are equal, round, and reactive to light. Extraocular eye muscles are intact, and sclera are anicteric. Nose - moist nasal mucosa without discharge. Mouth - moist buccal mucosa. Oropharynx is nonerythematous and there is no tonsillar exudate or edema noted. Neck: Supple; no JVD or cervical lymphadenopathy Heart: Regular rate and rhythm. There is a normal S1 and S2 with no murmurs, clicks, or gallops appreciated. Lungs: Clear to auscultation bilaterally with no wheezes, rales, or rhonchi. Abdomen: Soft, completely nontender, nondistended, with good bowel sounds. There are no palpable pulsatile masses or hepatosplenomegaly. There is no guarding, rigidity, or rebound noted. Extremities: No evidence of cyanosis, clubbing, or edema. There are easily palpable peripheral pulses. Skin: Extremely pale, warm and dry with good turgor and no rashes. Neuro: The patient is lethargic but will arouse to verbal and painful stimuli. She is oriented to person and place but not to time. She is moving all 4 extremities without difficulty. She is reaching for things that are not there. She is fidgeting with her close. ED COURSE: Patient was evaluated in room B9. A complete history and physical was performed. Laboratory studies were drawn as above. An order was placed for continuous cardiac monitoring. The patient was in a normal sinus rhythm at a rate of 84. A twelve-lead EKG was obtained. The patient will go for CT scan of the brain. The patient was quite lethargic and difficult to arouse at times. I reviewed the results of the labs and CT with the patient and her . I did perform Hemoccult testing of the patient stool which was negative. I discussed the case with the [facility] hospitalist and they will evaluate for further management. Lorrie Montejo, Past Med/Surg History Medical History (Updated 07/09/21 @ 09:03 by Sukhdev Jj MD) Degenerative disc disease Diabetes mellitus, type 2 Well controlled and stable A1C 6.1 on 03/28/21 Fibromyalgia Currently has flare GERD (gastroesophageal reflux disease) Well controlled and stable History of anemia Stable blood count since menopause History of kidney stones Not current issues History of TMJ disorder Improved with dental implants Hx of basal cell carcinoma Squamous and basal cell carcinoma - s/p removal Prone to keloids Hx of breast cancer LEFT- 2019 S/p left breast lumpectomy with LN dissection and chemo/XRT Hypercholesterolemia Hypertension Irregular heart beat Left bundle branch block CHRONIC- FOLLOWS WITH DR. RUBIN Lymphedema of left arm HX OF- IMPROVED WITH PT Nonischemic cardiomyopathy Mild- EF as low as 45-50% s/p chemo- since resolved ESTELLA (obstructive sleep apnea) NO DEVICE USING CURRENLTY (NEEDS SUPPLIES) HAS LOST WEIGHT - FEELS SYMPTOMS IMPROVED- HAS NOT HAD REPEAT SLEEP STUDY Surgical History (Updated 04/27/21 @ 14:27 by Nate Chapman DO) H/O abdominoplasty H/O ankle fusion LEFT H/O cervical spine surgery X 3 (HARDWARE) "LIMITED ROM" BOTH WITH SIDE TO SIDE AND FLEXION AND EXTENSTION FUSED C3-T3 H/O section X 2 H/O tubal ligation History of ankle surgery LEFT>surgery -2018 , bone marrow transplant (FAILED) History of cataract surgery RT/LEFT History of colonoscopy History of esophagogastroduodenoscopy (EGD) History of laparoscopy History of lumbar fusion History of repair of rotator cuff RT X 2 History of tooth extraction WITH DENTAL IMPLANTS Hx of squamous cell carcinoma excision S/P bilateral breast reduction surgery 2002 S/P lumpectomy, left breast WITH CHEMO AND RADIATION Family History Mother , age 59 Emphysema lung Father , age 56 Myocardial infarction Family history of diabetes mellitus Sister Vaginal bleeding Brother No problems noted. Son No problems noted. Son No problems noted. Grandmother (Maternal) Colon cancer Family history of diabetes mellitus Grandfather (Paternal) Colon cancer Prostate cancer Other No family history of adverse response to anesthesia Social History Smoking Status: Former smoker packs per day: 2; Years Smoked: 11; Cigarettes Per Day: Quit 1980; Smoking End Date: 1980; Second Hand Exposure: Yes; Hx Alcohol Use: Yes Hx Substance Use: No Preferred Language: Honduran Communication Ability: Effective Visual Impairment: No Limitations Hearing Ability: Hard of Hearing Residential Plumber Required: No Beliefs That Will Affect Care: None marital status: Current Living Situation: Spouse current occupational status: retired current occupation: semi retired RN - teaches at [employer] Feels Safe at Home: Yes Safety Concerns: Feels Safe At This Time Childhood Exposure to Second-Hand Smoke: Yes Assistive Devices: None Allergies Allergies Allergy/AdvReac Type Severity Reaction Status Date / Time niacin Allergy Severe ITCHING Verified 07/09/21 02:59 AND FLUSH FEELING atorvastatin [From Lipitor] Allergy Intermediate muscle Verified 07/09/21 02:59 pains ezetimibe [From Vytorin] Allergy Intermediate muscle Verified 07/09/21 02:59 pains lisinopril Allergy Intermediate Cough Verified 07/09/21 02:59 rosuvastatin [From Crestor] Allergy Intermediate Muscle Pain Verified 07/09/21 02:59 simvastatin [From Vytorin] Allergy Intermediate Muscle Pain Verified 07/09/21 02:59 Sulfa (Sulfonamide Allergy Rash Verified 07/09/21 02:59 Antibiotics) codeine AdvReac Intermediate Nausea Verified 07/09/21 02:59 prochlorperazine AdvReac Unknown EXTRAPYRAMIDAL Verified 07/09/21 02:59 SIDE EFFECTS/MOUTH TWITCHING Home Meds Home Medications Medication Instructions Recorded Confirmed losartan 25 mg tablet 25 mg PO QAM 03/23/19 07/09/21 multivitamin (Daily Multi-Vitamin) 1 tab PO QAM 03/23/19 07/09/21 valacyclovir 500 mg tablet 500 mg PO DAILY tab 12/29/19 07/09/21 cetirizine 10 mg capsule (Zyrtec) 10 mg PO DAILY PRN 12/13/20 07/09/21 magnesium oxide 500 mg capsule 500 mg PO QAM 12/13/20 07/09/21 metoprolol succinate 25 mg capsule 25 mg PO QAM ea 12/13/20 07/09/21 sprinkle, ext. release 24 hr naproxen sodium 220 mg capsule 220 mg PO Q12H 12/13/20 07/09/21 (Aleve) turmeric root extract 500 mg 500 mg PO QAM cap 12/13/20 07/09/21 capsule acetaminophen 500 mg tablet 500 mg PO BID 03/19/21 07/09/21 (Acetaminophen Extra Strength) amitriptyline 25 mg tablet 50 mg PO HS 03/19/21 07/09/21 calcium 600 mg capsule 600 mg PO BID 03/19/21 07/09/21 cholecalciferol (vitamin D3) 125 250 mcg PO QAM 03/19/21 07/09/21 mcg (5,000 unit) tablet (Vitamin D3) folic acid 0.8 mg capsule 0.8 mg PO QAM 03/19/21 07/09/21 glucosamine-chondroitin 250 mg-200 2 tab PO QAM 03/19/21 07/09/21 mg tablet (Osteo Bi-Flex) omeprazole magnesium 20 mg 20 mg PO QAM 03/19/21 07/09/21 tablet,delayed release (Prilosec OTC) potassium chloride 20 mEq 20 meq PO TID 03/19/21 07/09/21 tablet,extended release vitamin B complex 1 tab PO QAM 03/19/21 07/09/21 metformin 500 mg tablet,extended 1,000 mg PO DAILY 07/09/21 07/09/21 release 24 hr Previous Rx's Medication Instructions Recorded oxycodone 5 mg tablet 5 mg PO Q6H PRN #20 tab 05/14/21 Results & Data (ED) Vital Signs Vital Signs - 24 hr 07/09/21 03:19 Pulse Rate [Apical] 78 Pulse Rhythm [Apical] Regular Respiratory Rate 18 Respiratory Effort / Characteristics Non-Labored Spontaneous Respiratory Depth Normal Pulse Oximetry 98 Oxygen Delivery Method Room Air Laboratory Data Result diagrams: 07/09/21 01:30 07/09/21 01:30 Lab Results 07/09/21 07/09/21 07/09/21 Range/Units 01:30 01:30 01:30 WBC 7.35 (4.8-10.8) K/uL RBC 3.50 L (4.2-5.4) M/uL Hgb 9.7 L (12.0-16.0) g/dL Hct 29.8 L (37-47) % MCV 85.1 (80-100) fL MCH 27.7 (25-34) pg MCHC 32.6 (32-36) g/dL RDW Std Deviation 45.5 (36.4-46.3) fL RDW Coeff of Elodia 14.8 H (11.5-14.5) % Plt Count 277 (130-400) K/uL MPV 9.3 (7.4-10.4) fL Immature Gran % (Auto) 0.3 % Neut % (Auto) 78.6 % Lymph % (Auto) 12.8 % Arthur % (Auto) 7.3 % Eos % (Auto) 0.7 % Baso % (Auto) 0.3 % Neut # (Auto) 5.78 (1.4-6.5) K/uL Lymph # (Auto) 0.94 L (1.2-3.4) K/uL Arthur # (Auto) 0.54 (0.11-0.59) K/uL Eos # (Auto) 0.05 (0-0.5) K/uL Baso # (Auto) 0.02 (0-0.2) K/uL Immature Gran # (Auto) 0.02 (0.00-0.02) K/uL Sodium 141 (136-145) mmol/L Potassium 4.0 (3.5-5.1) mmol/L Chloride 107 (98-107) mmol/L Carbon Dioxide 25 (21-32) mmol/L Anion Gap 9.0 (3-11) BUN 17 (7-18) mg/dl Creatinine 0.81 (0.6-1.2) mg/dl Est Cr Clr Drug Dosing Not Reportable Est GFR ( Amer) 87.1 ml/min Est GFR (Non-Af Amer) 75.2 ml/min BUN/Creatinine Ratio 21.1 H (10-20) Glucose 159 H (70-99) mg/dl Calcium 8.8 (8.5-10.1) mg/dl Magnesium 1.7 L (1.8-2.4) mg/dl Total Bilirubin 0.3 (0.2-1) mg/dl AST 41 H (15-37) U/L ALT 34 (12-78) U/L Alkaline Phosphatase 101 (45-117) U/L Troponin I < 0.015 (0-0.045) ng/ml Total Protein 6.5 (6.4-8.2) gm/dl Albumin 3.4 (3.4-5.0) gm/dl Globulin 3.1 (2.5-4.0) gm/dl Albumin/Globulin Ratio 1.1 (0.9-2) Urine Color Urine Appearance (Clear) Urine pH (4.5-7.5) Ur Specific Goff (1.000-1.030) Urine Protein (Negative) Urine Glucose (UA) (Negative) Urine Ketones (Negative) Urine Blood (Negative) Urine Nitrite (Negative) Urine Bilirubin (Negative) Urine Urobilinogen (Negative) Ur Leukocyte Esterase (Negative) Salicylates < 1.7 L (2.8-20) mg/dl Acetaminophen < 2 L (10-30) ug/ml Ethyl Alcohol mg/dL (0-3) mg/dl 07/09/21 07/09/21 Range/Units 02:00 02:02 WBC (4.8-10.8) K/uL RBC (4.2-5.4) M/uL Hgb (12.0-16.0) g/dL Hct (37-47) % MCV (80-100) fL MCH (25-34) pg MCHC (32-36) g/dL RDW Std Deviation (36.4-46.3) fL RDW Coeff of Elodia (11.5-14.5) % Plt Count (130-400) K/uL MPV (7.4-10.4) fL Immature Gran % (Auto) % Neut % (Auto) % Lymph % (Auto) % Arthur % (Auto) % Eos % (Auto) % Baso % (Auto) % Neut # (Auto) (1.4-6.5) K/uL Lymph # (Auto) (1.2-3.4) K/uL Arthur # (Auto) (0.11-0.59) K/uL Eos # (Auto) (0-0.5) K/uL Baso # (Auto) (0-0.2) K/uL Immature Gran # (Auto) (0.00-0.02) K/uL Sodium (136-145) mmol/L Potassium (3.5-5.1) mmol/L Chloride (98-107) mmol/L Carbon Dioxide (21-32) mmol/L Anion Gap (3-11) BUN (7-18) mg/dl Creatinine (0.6-1.2) mg/dl Est Cr Clr Drug Dosing Est GFR ( Amer) ml/min Est GFR (Non-Af Amer) ml/min BUN/Creatinine Ratio (10-20) Glucose (70-99) mg/dl Calcium (8.5-10.1) mg/dl Magnesium (1.8-2.4) mg/dl Total Bilirubin (0.2-1) mg/dl AST (15-37) U/L ALT (12-78) U/L Alkaline Phosphatase (45-117) U/L Troponin I (0-0.045) ng/ml Total Protein (6.4-8.2) gm/dl Albumin (3.4-5.0) gm/dl Globulin (2.5-4.0) gm/dl Albumin/Globulin Ratio (0.9-2) Urine Color Yellow Urine Appearance Clear (Clear) Urine pH 5.0 (4.5-7.5) Ur Specific Goff 1.006 (1.000-1.030) Urine Protein Negative (Negative) Urine Glucose (UA) Negative (Negative) Urine Ketones Negative (Negative) Urine Blood Negative (Negative) Urine Nitrite Negative (Negative) Urine Bilirubin Negative (Negative) Urine Urobilinogen Negative (Negative) Ur Leukocyte Esterase Negative (Negative) Salicylates (2.8-20) mg/dl Acetaminophen (10-30) ug/ml Ethyl Alcohol mg/dL < 3.0 (0-3) mg/dl Administered Medications Discontinued Medications Sodium Chloride (Nss) 500 mls @ 999 mls/hr IV .Q31M [facility] Stop: 07/09/21 02:30 Last Infusion: 07/09/21 02:54 Dose: 0 mls/hr Documented by: [id number] Admin: 07/09/21 01:59 Dose: 999 mls/hr Documented by: [id number] Sodium Chloride (Nss 1000ml) 1,000 mls @ 120 mls/hr IV .Q8H20M [facility] Stop: 07/10/21 02:26 Last Admin: 07/09/21 11:01 Dose: 120 mls/hr Documented by: [id number] Losartan Potassium (Losartan Potassium 25 Mg Tab) 25 mg PO QAM [facility] Stop: 08/08/21 09:59 Last Admin: 07/09/21 11:00 Dose: 25 mg Documented by: [id number] Metoprolol Succinate (Metoprolol Succ 25mg Ext Rel Tab) 25 mg PO QAM [facility] Stop: 08/08/21 09:59 Last Admin: 07/09/21 11:00 Dose: 25 mg Documented by: [id number] Valacyclovir HCl (Valacyclovir Hcl 500 Mg Tablet) 500 mg PO DAILY [facility] Stop: 08/08/21 09:59 Last Admin: 07/09/21 11:00 Dose: 500 mg Documented by: [id number] Discharge Plan Visit Data Chief Complaint: Altered Mental Status Stated Complaint: CHANGE IN MENTAL STATUS ED Provider: Lorrie Montejo Discharge Problem: Altered mental status, Accidental overdose, Anemia Patient Disposition: Home - Self-Care Discharge Instructions Interventions: ED Discharge Assessment Last Done: 07/09/21 08:50 Discharge Problem: Altered mental status Qualifiers: Altered mental status type: delirium Qualified Code(s): R41.0 - Disorientation, unspecified Accidental overdose Qualifiers: Encounter type: initial encounter Qualified Code(s): T50.901A - Poisoning by unspecified drugs, medicaments and biological substances, accidental (unintentional), initial encounter Anemia Qualifiers: Anemia type: unspecified type Qualified Code(s): D64.9 - Anemia, unspecified
--- NOTE | 2021-07-09 07:12 | CT Scan Report ---
CT OF THE HEAD WITHOUT CONTRAST CLINICAL HISTORY: Altered mental status. COMPARISON STUDY: No previous studies for comparison. CT DOSE: 1228.53 mGy.cm TECHNIQUE: Helical axial images of the head were obtained without IV contrast. Automated exposure con trol was utilized for the study. A dose lowering technique was utilized adhering to the principles o f ALARA. FINDINGS: This study is mildly compromised by motion artifact. No acute intracranial hemorrhage, midl ine shift or mass effect is present. The ventricular system is unremarkable. White matter hypodensiti es favor small vessel disease. The basal cisterns are patent. No extra-axial collections are present. There are no findings to suggest acute dural sinus thrombosis or acute territorial infarct. No signi ficant calvarial abnormalities are present. Visualized portions of the sinuses and mastoid air cells are clear. IMPRESSION: Exam mildly compromised by motion artifact. No acute intracranial findings. ACT 112: Negative or not required by law. Electronically signed by: Isac Rodriguez M.D. 07/09/2021 7:10 AM
[2021-07-09 07:35] VITALS: O2SAT 94
--- NOTE | 2021-07-09 08:51 | Hospitalist Progress Note ---
Date of Service July 09, 2021 Assessment & Plan (1) Altered level of consciousness: Plan: Liza Smith is a 66y/o F w/ PMH significant for HTN, T2DM, obstructive sleep apnea, and osteoarthritis: who presented to the ED for altered mental status starting last night. Altered mental status: -likely secondary to accidental overdose (ingested Amitriptyline, Benadryl, and Percocet) -CT Head without intacranial findings -will continue to await improvement in sedation -continue to monitor on telemetry given TCA component to overdose HTN: -continue losartan and metoprolol T2DM: -last A1c of 6.1 in March -continue metformnin upon transition out of hospital Diet: NPO while lethargic CODE STATUS: low risk DVT ppx: ambulation as tolerated once awake - Heparin (2) Accidental overdose: (3) ESTELLA (obstructive sleep apnea): (4) Osteoarthritis of right shoulder: Admission and Anticipated Discharge Date Admission Date: July 09, 2021 Review of Systems Review of Systems: All systems reviewed & are unremarkable except as noted in Subjective Physical Exam Constitutional: WD/WN, vitals as above + lethargic Eyes: PERRL, conjunctivae normal, anicteric sclerae Respiratory: normal respiratory effort, lungs clear to auscultation Auscultation: no crackles, no rales, no rhonchi and no wheezes Cardiovascular: Rate/Rhythm: regular rate and regular rhythm Heart Sounds: no gallop, no murmur and no cardiac rub Vessels: normal peripheral pulses; no JVD Gastrointestinal (Abdomen): Inspection/Auscultation: normal bowel sounds; abdomen not distended Percussion/Palpation: abdomen soft; abdomen nontender and no guarding Musculoskeletal: no cyanosis or clubbing, extremities motor strength 5/5 Skin: no rashes, warm and dry Neurologic: PERRL, EOMI, accommodation nl, no face palsy, no dysarthria deep tendon reflexes 2+ bilaterally and moves all extremities Psychiatric: Orientation: alert and oriented x 3 Results & Data Results & Data ([facility]) Vital Signs (Past 12 Hours) Vital Signs Temp Pulse Pulse Resp BP BP Pulse Ox 07/09/21 07:34 79 18 162/92 H 94 07/09/21 05:11 78 19 166/98 H 07/09/21 03:19 78 18 98 07/09/21 01:49 84 18 97 07/09/21 01:19 36.3 C L 78 18 149/85 H 97 07/09/21 01:14 73 20 149/85 H Laboratory Results 07/09/21 07/09/21 07/09/21 Range/Units 05:00 05:00 02:02 WBC (4.8-10.8) K/uL RBC (4.2-5.4) M/uL Hgb (12.0-16.0) g/dL Hct (37-47) % MCV (80-100) fL MCH (25-34) pg MCHC (32-36) g/dL RDW Std Deviation (36.4-46.3) fL RDW Coeff of Elodia (11.5-14.5) % Plt Count (130-400) K/uL MPV (7.4-10.4) fL Immature Gran % (Auto) % Neut % (Auto) % Lymph % (Auto) % Labette % (Auto) % Eos % (Auto) % Baso % (Auto) % Neut # (Auto) (1.4-6.5) K/uL Lymph # (Auto) (1.2-3.4) K/uL Labette # (Auto) (0.11-0.59) K/uL Eos # (Auto) (0-0.5) K/uL Baso # (Auto) (0-0.2) K/uL Immature Gran # (Auto) (0.00-0.02) K/uL Sodium (136-145) mmol/L Potassium (3.5-5.1) mmol/L Chloride (98-107) mmol/L Carbon Dioxide (21-32) mmol/L Anion Gap (3-11) BUN (7-18) mg/dl Creatinine (0.6-1.2) mg/dl Est Cr Clr Drug Dosing Est GFR ( Amer) ml/min Est GFR (Non-Af Amer) ml/min BUN/Creatinine Ratio (10-20) Glucose (70-99) mg/dl Calcium (8.5-10.1) mg/dl Magnesium (1.8-2.4) mg/dl Total Bilirubin (0.2-1) mg/dl AST (15-37) U/L ALT (12-78) U/L Alkaline Phosphatase (45-117) U/L Troponin I (0-0.045) ng/ml Total Protein (6.4-8.2) gm/dl Albumin (3.4-5.0) gm/dl Globulin (2.5-4.0) gm/dl Albumin/Globulin Ratio (0.9-2) Urine Color Urine Appearance (Clear) Urine pH (4.5-7.5) Ur Specific Swink (1.000-1.030) Urine Protein (Negative) Urine Glucose (UA) (Negative) Urine Ketones (Negative) Urine Blood (Negative) Urine Nitrite (Negative) Urine Bilirubin (Negative) Urine Urobilinogen (Negative) Ur Leukocyte Esterase (Negative) Salicylates (2.8-20) mg/dl Acetaminophen (10-30) ug/ml Ethyl Alcohol mg/dL < 3.0 (0-3) mg/dl COVID-19 Eval Order Covid19 at [facility] SARS-CoV-2 (PCR) NEGATIVE (Negative) 07/09/21 07/09/21 07/09/21 Range/Units 02:00 01:30 01:30 WBC (4.8-10.8) K/uL RBC (4.2-5.4) M/uL Hgb (12.0-16.0) g/dL Hct (37-47) % MCV (80-100) fL MCH (25-34) pg MCHC (32-36) g/dL RDW Std Deviation (36.4-46.3) fL RDW Coeff of Elodia (11.5-14.5) % Plt Count (130-400) K/uL MPV (7.4-10.4) fL Immature Gran % (Auto) % Neut % (Auto) % Lymph % (Auto) % Labette % (Auto) % Eos % (Auto) % Baso % (Auto) % Neut # (Auto) (1.4-6.5) K/uL Lymph # (Auto) (1.2-3.4) K/uL Labette # (Auto) (0.11-0.59) K/uL Eos # (Auto) (0-0.5) K/uL Baso # (Auto) (0-0.2) K/uL Immature Gran # (Auto) (0.00-0.02) K/uL Sodium 141 (136-145) mmol/L Potassium 4.0 (3.5-5.1) mmol/L Chloride 107 (98-107) mmol/L Carbon Dioxide 25 (21-32) mmol/L Anion Gap 9.0 (3-11) BUN 17 (7-18) mg/dl Creatinine 0.81 (0.6-1.2) mg/dl Est Cr Clr Drug Dosing Not Reportable Est GFR ( Amer) 87.1 ml/min Est GFR (Non-Af Amer) 75.2 ml/min BUN/Creatinine Ratio 21.1 H (10-20) Glucose 159 H (70-99) mg/dl Calcium 8.8 (8.5-10.1) mg/dl Magnesium 1.7 L (1.8-2.4) mg/dl Total Bilirubin 0.3 (0.2-1) mg/dl AST 41 H (15-37) U/L ALT 34 (12-78) U/L Alkaline Phosphatase 101 (45-117) U/L Troponin I < 0.015 (0-0.045) ng/ml Total Protein 6.5 (6.4-8.2) gm/dl Albumin 3.4 (3.4-5.0) gm/dl Globulin 3.1 (2.5-4.0) gm/dl Albumin/Globulin Ratio 1.1 (0.9-2) Urine Color Yellow Urine Appearance Clear (Clear) Urine pH 5.0 (4.5-7.5) Ur Specific Swink 1.006 (1.000-1.030) Urine Protein Negative (Negative) Urine Glucose (UA) Negative (Negative) Urine Ketones Negative (Negative) Urine Blood Negative (Negative) Urine Nitrite Negative (Negative) Urine Bilirubin Negative (Negative) Urine Urobilinogen Negative (Negative) Ur Leukocyte Esterase Negative (Negative) Salicylates < 1.7 L (2.8-20) mg/dl Acetaminophen < 2 L (10-30) ug/ml Ethyl Alcohol mg/dL (0-3) mg/dl COVID-19 Eval Order SARS-CoV-2 (PCR) (Negative) 07/09/21 Range/Units 01:30 WBC 7.35 (4.8-10.8) K/uL RBC 3.50 L (4.2-5.4) M/uL Hgb 9.7 L (12.0-16.0) g/dL Hct 29.8 L (37-47) % MCV 85.1 (80-100) fL MCH 27.7 (25-34) pg MCHC 32.6 (32-36) g/dL RDW Std Deviation 45.5 (36.4-46.3) fL RDW Coeff of Elodia 14.8 H (11.5-14.5) % Plt Count 277 (130-400) K/uL MPV 9.3 (7.4-10.4) fL Immature Gran % (Auto) 0.3 % Neut % (Auto) 78.6 % Lymph % (Auto) 12.8 % Labette % (Auto) 7.3 % Eos % (Auto) 0.7 % Baso % (Auto) 0.3 % Neut # (Auto) 5.78 (1.4-6.5) K/uL Lymph # (Auto) 0.94 L (1.2-3.4) K/uL Labette # (Auto) 0.54 (0.11-0.59) K/uL Eos # (Auto) 0.05 (0-0.5) K/uL Baso # (Auto) 0.02 (0-0.2) K/uL Immature Gran # (Auto) 0.02 (0.00-0.02) K/uL Sodium (136-145) mmol/L Potassium (3.5-5.1) mmol/L Chloride (98-107) mmol/L Carbon Dioxide (21-32) mmol/L Anion Gap (3-11) BUN (7-18) mg/dl Creatinine (0.6-1.2) mg/dl Est Cr Clr Drug Dosing Est GFR ( Amer) ml/min Est GFR (Non-Af Amer) ml/min BUN/Creatinine Ratio (10-20) Glucose (70-99) mg/dl Calcium (8.5-10.1) mg/dl Magnesium (1.8-2.4) mg/dl Total Bilirubin (0.2-1) mg/dl AST (15-37) U/L ALT (12-78) U/L Alkaline Phosphatase (45-117) U/L Troponin I (0-0.045) ng/ml Total Protein (6.4-8.2) gm/dl Albumin (3.4-5.0) gm/dl Globulin (2.5-4.0) gm/dl Albumin/Globulin Ratio (0.9-2) Urine Color Urine Appearance (Clear) Urine pH (4.5-7.5) Ur Specific Swink (1.000-1.030) Urine Protein (Negative) Urine Glucose (UA) (Negative) Urine Ketones (Negative) Urine Blood (Negative) Urine Nitrite (Negative) Urine Bilirubin (Negative) Urine Urobilinogen (Negative) Ur Leukocyte Esterase (Negative) Salicylates (2.8-20) mg/dl Acetaminophen (10-30) ug/ml Ethyl Alcohol mg/dL (0-3) mg/dl COVID-19 Eval Order SARS-CoV-2 (PCR) (Negative) Diagnostic Findings Impressions Head CT 07/09/21 01:49 CT OF THE HEAD WITHOUT CONTRAST CLINICAL HISTORY: Altered mental status. COMPARISON STUDY: No previous studies for comparison. CT DOSE: 1228.53 mGy.cm TECHNIQUE: Helical axial images of the head were obtained without IV contrast. Automated exposure control was utilized for the study. A dose lowering technique was utilized adhering to the principles of ALARA. FINDINGS: This study is mildly compromised by motion artifact. No acute intracranial hemorrhage, midline shift or mass effect is present. The ventricular system is unremarkable. White matter hypodensities favor small vessel disease. The basal cisterns are patent. No extra-axial collections are present. There are no findings to suggest acute dural sinus thrombosis or acute territorial infarct. No significant calvarial abnormalities are present. Visualized portions of the sinuses and mastoid air cells are clear. IMPRESSION: Exam mildly compromised by motion artifact. No acute intracranial findings. ACT 112: Negative or not required by law. Electronically signed by: Isac Rodriguez M.D. 07/09/2021 7:10 AM Medications Administered Home Medication List Medication Instructions Recorded losartan 25 mg tablet 25 mg PO QAM 03/23/19 multivitamin (Daily Multi-Vitamin) 1 tab PO QAM 03/23/19 valacyclovir 500 mg tablet 500 mg PO DAILY tab 12/29/19 cetirizine 10 mg capsule (Zyrtec) 10 mg PO DAILY PRN 12/13/20 magnesium oxide 500 mg capsule 500 mg PO QAM 12/13/20 metoprolol succinate 25 mg capsule 25 mg PO QAM ea 12/13/20 sprinkle, ext. release 24 hr naproxen sodium 220 mg capsule 220 mg PO Q12H 12/13/20 (Aleve) turmeric root extract 500 mg 500 mg PO QAM cap 12/13/20 capsule acetaminophen 500 mg tablet 500 mg PO BID 03/19/21 (Acetaminophen Extra Strength) amitriptyline 25 mg tablet 50 mg PO HS 03/19/21 calcium 600 mg capsule 600 mg PO BID 03/19/21 cholecalciferol (vitamin D3) 125 250 mcg PO QAM 03/19/21 mcg (5,000 unit) tablet (Vitamin D3) folic acid 0.8 mg capsule 0.8 mg PO QAM 03/19/21 glucosamine-chondroitin 250 mg-200 2 tab PO QAM 03/19/21 mg tablet (Osteo Bi-Flex) omeprazole magnesium 20 mg 20 mg PO QAM 03/19/21 tablet,delayed release (Prilosec OTC) potassium chloride 20 mEq 20 meq PO TID 03/19/21 tablet,extended release vitamin B complex 1 tab PO QAM 03/19/21 oxycodone 5 mg tablet 5 mg PO Q6H PRN #20 tab 05/14/21 metformin 500 mg tablet,extended 1,000 mg PO DAILY 07/09/21 release 24 hr Resident Activity Tracking Resident Involvement: Resident Care Provided Care Provided: Adult Hospital Medicine
[2021-07-09] MEDS ORDERED: oxyCODONE HCL IR 5 MG TAB (IMMEDIATE RELEASE) PO PRN (09:47)
[2021-07-09] MEDS ORDERED: ONDANSETRON INJ 2 MG/ML 2 ML VIAL IV PRN (09:47)
[2021-07-09] MEDS ORDERED: SODIUM CHLORIDE 0.9% 1000ML 1,000 ML IV SCH (09:47)
[2021-07-09] MEDS ORDERED: NITROGLYCERIN SL 0.4 MG/TAB TAB SL PRN (09:47)
[2021-07-09] MEDS ORDERED: METOPROLOL SUCC 25MG EXT REL TAB PO SCH (10:00)
[2021-07-09] MEDS ORDERED: LOSARTAN POTASSIUM 25 MG TAB PO SCH (10:00)
[2021-07-09] MEDS ORDERED: valACYclovir HCL 500 MG TABLET PO SCH (10:00)
--- NOTE | 2021-07-09 12:31 | Discharge Summary ---
Date of Service July 09, 2021 Admission HPI Per Admitting Provider 66 yo F with hx HTN brought to ER for accidental OD. patient normally takes amitriptyline at night, and has been experiencing hip pain while packing up house to move. This evening she took 2 Benadryl to help her sleep, in addition to an old percocet from prior shoulder surgery and her amitriptyline. Initially confused in ER, now heavily sedated and asleep as side effect of medications. unable to get further HPI due to level of consciousness. Principal Diagnosis accidental overdose Discharge Exam Constitutional WD/WN, vitals as above Eyes PERRL, conjunctivae normal, anicteric sclerae Respiratory normal respiratory effort, lungs clear to auscultation Auscultation: no crackles, no rales, no rhonchi and no wheezes Cardiovascular Rate/Rhythm: regular rate and regular rhythm Heart Sounds: no gallop, no murmur and no cardiac rub Vessels: normal peripheral pulses; no JVD Extremities: no edema Gastrointestinal (Abdomen) Inspection/Auscultation: normal bowel sounds; abdomen not distended Percussion/Palpation: abdomen soft; abdomen nontender and no guarding Musculoskeletal no cyanosis or clubbing, extremities motor strength 5/5 Skin no rashes, warm and dry Neurologic PERRL, EOMI, accommodation nl, no face palsy, no dysarthria CN's II-XI intact bilaterally and moves all extremities Psychiatric Orientation: alert and oriented x 3 Discharge Data Allergies Allergy/AdvReac Type Severity Reaction Status Date / Time niacin Allergy Severe ITCHING Verified 07/09/21 02:59 AND FLUSH FEELING atorvastatin [From Lipitor] Allergy Intermediate muscle Verified 07/09/21 02:59 pains ezetimibe [From Vytorin] Allergy Intermediate muscle Verified 07/09/21 02:59 pains lisinopril Allergy Intermediate Cough Verified 07/09/21 02:59 rosuvastatin [From Crestor] Allergy Intermediate Muscle Pain Verified 07/09/21 02:59 simvastatin [From Vytorin] Allergy Intermediate Muscle Pain Verified 07/09/21 02:59 Sulfa (Sulfonamide Allergy Rash Verified 07/09/21 02:59 Antibiotics) codeine AdvReac Intermediate Nausea Verified 07/09/21 02:59 prochlorperazine AdvReac Unknown EXTRAPYRAMIDAL Verified 07/09/21 02:59 SIDE EFFECTS/MOUTH TWITCHING Consultations 07/09/21 04:15 ED Decision to Admit Stat Ordered Studies 07/09/21 01:49 CT head/brain wo con Urgent Hospital Course (1) Altered level of consciousness: Liza Smith is a 66y/o F w/ PMH significant for HTN, T2DM, obstructive sleep apnea, and osteoarthritis: who presented to the ED for altered mental status starting last night. Altered mental status: -likely secondary to accidental overdose (ingested Amitriptyline, Benadryl, and Percocet) -CT Head without intacranial findings -resolved following continued monitoring on telemetry -no signs of TCA toxicity in hospital -recommend discontinuation of the use of these three medications in combination going forward -recommend potential transition of Amitriptyline to other chronic pain/fibromyalgia treatments Lumbar radiculopathy -acute exacerbation of pain sec to excessive exertion due to her move. -Need of percocet recently which she had from her shoulder surgery -Pain improved during hospital stay HTN: -continue losartan and metoprolol T2DM: -last A1c of 6.1 in March -continue metformin Fibromyalgia: -chronic use of Amitriptyline with additional daily use of Aleve & Tylenol -consideration of transition of chronic pain regimen to Cymbalta (2) Accidental overdose: (3) ESTELLA (obstructive sleep apnea): (4) Osteoarthritis of right shoulder: Total Time Total Time Spent Total Time Spent (In Minutes): 30 Discharge Plan Discharge Items Patient Disposition: Home - Self-Care Reason For Visit: ACCIDENTAL OD Discharge Diagnosis: accidental overdose Activity: Per Instructions section Non-emergency contact: Primary Care Provider Call non-emergency contact if: you have any medication questions and your symptoms worsen Follow-up/Referrals: Vivien Berrios MD [Primary Care Provider] - Diet: Regular Addtl Attending Provider Instructions: You were seen and admitted due to altered mental status following an accidental overdose on the combination of Benadryl, Amitriptyline, and Percocet. This seemed to have been have taken as a result of the worsening of your back and shoulder pain that had been going on over the last week with your increased work anticipation of your movement. While you have been working with physical therapy for your shoulder, given your surgery history you should additionally work with them on your low back as this seems to have worsened your pain. Pending Studies at Discharge: No Stand-Alone Forms: My [facility], Smoking Cessation Medications and DC Order Prescriptions: Continued naproxen sodium [Aleve] 220 mg capsule 220 mg PO Q12H RF: 0 Zyrtec 10 mg capsule 10 mg PO DAILY PRN (Reason: ALLERGY RELIEF) RF: 0 magnesium oxide 500 mg capsule 500 mg PO QAM RF: 0 losartan 25 mg tablet 25 mg PO QAM RF: 0 multivitamin [Daily Multi-Vitamin] tablet 1 tab PO QAM RF: 0 metoprolol succinate 25 mg capsule,sprinkle,ER 24hr 25 mg PO QAM RF: 0 turmeric root extract 500 mg capsule 500 mg PO QAM RF: 0 valacyclovir 500 mg tablet 500 mg PO DAILY RF: 0 oxycodone 5 mg tablet 5 mg PO Q6H PRN (Reason: pain) Qty: 20 RF: 0 calcium 600 mg Capsule 600 mg PO BID RF: 0 amitriptyline 25 mg Tablet 50 mg PO HS RF: 0 vitamin B complex Tablet 1 tab PO QAM RF: 0 glucosamine-chondroitin [Osteo Bi-Flex] 250-200 mg Tablet 2 tab PO QAM RF: 0 folic acid 0.8 mg Capsule 0.8 mg PO QAM RF: 0 cholecalciferol (vitamin D3) [Vitamin D3] 125 mcg (5,000 unit) Tablet 250 mcg PO QAM RF: 0 potassium chloride 20 mEq Tablet Extended Release 20 meq PO TID RF: 0 omeprazole magnesium [Prilosec OTC] 20 mg tablet,delayed release (DR/EC) 20 mg PO QAM RF: 0 acetaminophen [Acetaminophen Extra Strength] 500 mg Tablet 500 mg PO BID RF: 0 metformin 500 mg tablet extended release 24 hr 1,000 mg PO DAILY RF: 0 Discharge Orders: Discharge Order (Routine); Ordered 07/09/21 Ordered By: Sukhdev Jj Admission Data Admit Date/Time: 07/09/21 04:47 Attending Provider: Jazmyn Matute Admit Provider: Paco Warren Primary Care Provider: Vivien Berrios Other Providers: Paco Warren Other Interventions: Discharge Summary Assessment (RN) Last Done: 07/09/21 12:43 Supervising Physician Co-Signing Physician Notes Resident Physician Supervision Note: I independently interviewed and examined the patient and verified the garcia history and physical, reviewed labs and image studies and agree with resident Dr. Jj findings and care plan. Resident Activity Tracking Resident Involvement: Resident Care Provided Care Provided: Adult [facility] Medicine
[2021-07-09 12:45] VITALS: BP 162/92; PULSE 79
--- NOTE | 2021-07-11 15:37 | Electrocardiogram Report ---
Test Reason : Blood Pressure : / mmHG Vent. Rate : 077 BPM Atrial Rate : 077 BPM P-R Int : 170 ms QRS Dur : 136 ms QT Int : 414 ms P-R-T Axes : 017 -23 081 degrees QTc Int : 468 ms Poor data quality, interpretation may be adversely affected Normal sinus rhythm Left bundle branch block Abnormal ECG When compared with ECG of 28-MAR-2021 12:51, No significant change was found Confirmed by Eric Brennan ([id number]) on 07/11/2021 3:37:21 PM Referred By: REFERRED SELF Confirmed By:Eric Brennan
--- NOTE | 2021-07-11 15:43 | Electrocardiogram Report ---
Test Reason : Blood Pressure : / mmHG Vent. Rate : 074 BPM Atrial Rate : 074 BPM P-R Int : 150 ms QRS Dur : 142 ms QT Int : 420 ms P-R-T Axes : 002 -26 102 degrees QTc Int : 466 ms Sinus rhythm with Premature atrial complexes Left bundle branch block Abnormal ECG When compared with ECG of 09-JUL-2021 01:16, (unconfirmed) Premature atrial complexes are now Present Confirmed by Eric Brennan ([id number]) on 07/11/2021 3:43:12 PM Referred By: REFERRED SELF Confirmed By:Eric Brennan
--- NOTE | 2021-07-12 19:56 | Billing Data ---
Date of Service July 12, 2021 Coding Level of Care Code INT OBSERVATION CARE 70M LVL 3
== END 2021-07-09 15:17 | disposition home or self-care (01) ==
LOC: ED 01:06 → EDINP 01:06 → SUATTDRO 04:47 → EDINP 08:50
DX: K21.9 Gastro-esophageal reflux disease without esophagitis; I10 Essential (primary) hypertension; M54.16 Radiculopathy, lumbar region; E78.5 Hyperlipidemia, unspecified; Z88.5 Allergy status to narcotic agent; E11.9 Type 2 diabetes mellitus without complications; Z79.899 Other long term (current) drug therapy; Z88.8 Allergy status to other drugs, medicaments and biological substances; T50.991A Poisoning by other drugs, medicaments and biological substances, accidental (unintentional), initial encounter; Z79.4 Long term (current) use of insulin; G47.33 Obstructive sleep apnea (adult) (pediatric); R40.4 Transient alteration of awareness; M79.7 Fibromyalgia; Z85.3 Personal history of malignant neoplasm of breast; I42.9 Cardiomyopathy, unspecified; M19.90 Unspecified osteoarthritis, unspecified site; Z88.2 Allergy status to sulfonamides